=== PATIENT | male | born 1970 | race Caucasian/White ===

== ENCOUNTER 2020-08-27 14:42 | Outpatient (REF) | payer MEDICARE, MEDICAID, SELFPAY ==
[2020-08-29 02:07] LABS: Herpes Simplex Type 1 IgG >58.00 index; Herpes Simplex Type 2 IgG <0.90 index
[2020-08-29 05:05] LABS: HIV AB/AG Nonreactive (Nonreactive); HIV Num 1 0.07 S/CO (0.00-0.99)
== END 2020-08-27 14:43 | disposition home or self-care (01) ==
LOC: HO.LAB 14:42
PROVIDERS: PCP Internal Medicine Medical Oncology; Visit Provider Internal Medicine Medical Oncology
DX: M54.40 Lumbago with sciatica, unspecified side (principal); Z20.6 Contact with and (suspected) exposure to human immunodeficiency virus [HIV]; Z20.828 Contact with and (suspected) exposure to other viral communicable diseases
CPT/HCPCS: 36415; 86695; 86696; 87389

== ENCOUNTER 2020-09-02 15:09 | Outpatient (REF) | payer MEDICARE, MEDICAID, SELFPAY | END 2020-09-02 15:10 | disposition home or self-care (01) | LOC: HO.LAB 15:09 | PROVIDERS: Visit Provider Internal Medicine | DX: Z20.822 Contact with and (suspected) exposure to COVID-19 (principal) | CPT/HCPCS: 36415; C9803; U0003; U0005 ==

== ENCOUNTER 2021-01-14 10:43 | Outpatient (REF) | payer MEDICARE, MEDICAID, SELFPAY | END 2021-01-14 10:44 | disposition home or self-care (01) | LOC: HO.LAB 10:43 | PROVIDERS: PCP Internal Medicine Medical Oncology; Visit Provider Internal Medicine | DX: Z20.822 Contact with and (suspected) exposure to COVID-19 (principal) | CPT/HCPCS: C9803; U0003; U0005 ==

== ENCOUNTER 2021-07-04 07:40 | Outpatient (REF) | payer MEDICARE, MEDICAID, SELFPAY | END 2021-07-04 07:41 | disposition home or self-care (01) | LOC: HO.HOSX 07:40 | PROVIDERS: Visit Provider Physician Assistant | DX: Z13.89 Encounter for screening for other disorder (principal) ==

== ENCOUNTER 2021-07-23 07:45 | Outpatient (REF) | payer MEDICARE, MEDICAID, SELFPAY | END 2021-07-23 07:46 | disposition home or self-care (01) | LOC: HO.HOSX 07:45 | PROVIDERS: Visit Provider Physician Assistant | DX: Z13.89 Encounter for screening for other disorder (principal) ==

== ENCOUNTER 2022-11-09 12:17 | Outpatient (REF) | payer MEDICARE, MEDICAID, SELFPAY | END 2022-11-09 12:18 | disposition home or self-care (01) | LOC: HO.HOSX 12:17 | PROVIDERS: Visit Provider Orthopaedic Surgery | DX: Z13.89 Encounter for screening for other disorder (principal) ==

== ENCOUNTER 2022-11-23 08:35 | Outpatient (REF) | payer MEDICARE, MEDICAID, SELFPAY ==
--- NOTE | ~2022-11-23 | XR_ITS ---
STUDY: Left knee and AP bilateral knees CLINICAL INFORMATION: left knee pain COMPARISON: 04/02/2011 and 12/16/2014 TECHNIQUE: AP view bilateral weightbearing and sunrise view and lateral views of the left. FINDINGS: There is no evidence of fracture or changes of osteoarthritis and no joint effusion XR/XR knee standing BI IMPRESSION: No abnormal findings
--- NOTE | ~2022-11-23 | XR_ITS ---
STUDY: Left knee and AP bilateral knees CLINICAL INFORMATION: left knee pain COMPARISON: 04/02/2011 and 12/16/2014 TECHNIQUE: AP view bilateral weightbearing and sunrise view and lateral views of the left. FINDINGS: There is no evidence of fracture or changes of osteoarthritis and no joint effusion XR/XR knee LT 2V IMPRESSION: No abnormal findings
== END 2022-11-23 08:36 | disposition home or self-care (01) ==
LOC: HO.HOSX 08:35
PROVIDERS: Visit Provider Orthopaedic Surgery
DX: M17.0 Bilateral primary osteoarthritis of knee (principal)
CPT/HCPCS: 20610; 73560; 73565; 99202; J1100

== ENCOUNTER 2023-03-18 10:09 | Outpatient (AMB) | payer MEDICARE, MEDICAID, SELFPAY ==
--- NOTE | 2023-03-18 09:44 | MHC.OFFVIS ---
Intake Intake Visit Reasons: OV - B/L Knee OA - last injected 11/23/22 Intake Note: Rajan is a 52 year old male who presents today for a follow up of bilateral knee OA. Last seen on 11/23/22 where both of his knees were injected. Patient reports that these injections were helpful but not for as long as he would have liked, he would like to repeat today. He is interesting in trying gel injections. Allergies No Known Allergies Allergy (Unverified 11/23/22 14:39) HPI OV - B/L Knee OA - last injected 11/23/22 HPI Details Rajan is a 52 year old man with bilateral knee OA, L>R. He was last seen on 11/23/22 and received an injection to his bilateral knees. He reports good relief from his most recent injections an would like to repeat these today. He would like to discuss repeat steroid vs gel injections today. Review of Systems Const All systems reviewed & are unremarkable except as noted in HPI and below Physical Exam Const General: no acute distress, alert and awake Orientation/consciousness: patient oriented x3 HEENT Head: Yes normocephalic and Yes atraumatic Eyes EOM: EOMs intact bilaterally Resp Effort & Inspection: normal respiratory effort and able to speak in complete sentences Cardio Jugular venous distension: no JVD Skin General skin exam: turgor normal Rashes: no rashes Neuro General: patient oriented x3 Extrem Other: Bilateral Knees: Skin C/D/I No effusion TTP medial compartment Psych Appearance: grossly normal Affect: normal affect Attitude: cooperative Office Procedures Joint Injection/Drain Joint Injection/Drain Details: Injected 1 mL of Decadron and 3 mL 1% lidocaine and 3 mL of 0.25% Marcaine. Site was prepped using aseptic technique. Patient tolerated the procedure well. Primary Site: right knee Secondary Site: left knee Approach Used: anterolateral Coding - Large joint - Glenohumeral/Tronchanteric Bursa/Intraarticular Procedure code (CPT) selection complete Results Reviewed Results Reviewed: 03/18/23 10:18 BUPivacaine MPF 0.25 % [Sensorcaine-MPF 0.25% 10 ML] 10 ml .ROUTE .STK-MED ONE Lidocaine HCl 2 % MPF [Xylocaine 2 % MPF] 5 ml .ROUTE .STK-MED ONE dexAMETHasone sod phosphate [Decadron] 4 mg .ROUTE .STK-MED ONE I personally reviewed relevant radiographs. Moderate bilateral knee OA of the medial & anterior compartments Assessment & Plan Assessment & Plan (1) Osteoarthritis of left knee: Code(s): M17.12 - Unilateral primary osteoarthritis, left knee Plan: This is a 52 year old man with bilateral knee OA, L>R. He has pain primarily with prolonged ambulation, and good relief from his last steroid injection on 11/23/22. He is somewhat limited in his ambulation and has an antalgic gait. I discussed his diagnosis and treatment options. I recommend he remain active as tolerated. I injected his bilateral knees today, which he tolerated well. He can follow up prn. (2) Osteoarthritis of right knee: Code(s): M17.11 - Unilateral primary osteoarthritis, right knee Plan Scribed for Isidoro Arenas MD by Tj Edmond, pediatric medical assistant, on 03/18/23 at 10:30 AM, EST. Coding Level of Care Code Est Pt Level 3 (83012) Diagnoses Osteoarthritis of left knee M17.12 Osteoarthritis of right knee M17.11 CPT Codes Coding - 16156 Large joint: 02760 - Large joint ([id number]) Coding - Joint 7: 88290 - Glenohumeral/Tronchanteric Bursa/Intraarticular ([id number])
== END 2023-03-18 10:39 | disposition home or self-care (01) ==
PROVIDERS: PCP Internal Medicine Medical Oncology; Visit Provider Orthopaedic Surgery
DX: M17.0 Bilateral primary osteoarthritis of knee (principal)
CPT/HCPCS: 20610

== ENCOUNTER → 2023-03-18 10:09 | Outpatient (BNVA) | payer MEDICARE, MEDICAID, SELFPAY | PROVIDERS: PCP Internal Medicine Medical Oncology; Visit Provider Orthopaedic Surgery | DX: M17.0 Bilateral primary osteoarthritis of knee (principal) | CPT/HCPCS: 20610; J1100 ==

== ENCOUNTER 2023-05-31 11:20 | Outpatient (AMB) | payer MEDICARE, MEDICAID, SELFPAY ==
--- NOTE | 2023-05-31 11:22 | MHC.OFFVIS ---
Intake Intake Visit Reasons: Bilateral Knee Euflexxa #1 Intake Note: Rajan is a 52 year old male who presents today for bilateral euflexxa #1 Allergies No Known Allergies Allergy (Unverified 11/23/22 14:39) HPI Bilateral Knee Euflexxa #1 HPI Details Rjaan is a 52 year old man who presents for his first bilateral knee Euflexxa injection. He denies any changes in his symptoms or medical history. He reports feeling tired and having poor sleep habits. He says he does not get much sleep each night. Review of Systems Const All systems reviewed & are unremarkable except as noted in HPI and below Physical Exam Const General: no acute distress, alert and awake Orientation/consciousness: patient oriented x3 HEENT Head: Yes normocephalic and Yes atraumatic Eyes EOM: EOMs intact bilaterally Resp Effort & Inspection: normal respiratory effort and able to speak in complete sentences Cardio Jugular venous distension: no JVD Skin General skin exam: turgor normal Rashes: no rashes Neuro General: patient oriented x3 Extrem Other: skin c/d/i Psych Appearance: grossly normal Affect: normal affect Attitude: cooperative Office Procedures Joint Injection/Drain Joint Injection/Drain Details: Injected 1Euflexxa in each knee. Site was prepped using aseptic technique. Patient tolerated the procedure well. Primary Site: right knee Secondary Site: left knee Approach Used: anterolateral Coding - Large joint - Glenohumeral/Tronchanteric Bursa/Intraarticular Procedure code (CPT) selection complete Results Reviewed Results Reviewed: I personally reviewed relevant radiographs. Moderate bilateral knee OA of the medial & anterior compartments Assessment & Plan Assessment & Plan (1) Osteoarthritis of right knee: Code(s): M17.11 - Unilateral primary osteoarthritis, right knee Plan: Euflexxa 1/3 (2) Osteoarthritis of left knee: Code(s): M17.12 - Unilateral primary osteoarthritis, left knee Plan: Euflexxa 1/3 Plan Scribed for Isidoro Arenas MD by Tj Edmond medical device sales, on 05/31/23 at 11:25 AM, EST. Coding Level of Care Code Est Pt Level 2 (51578) Diagnoses Osteoarthritis of right knee M17.11 Osteoarthritis of left knee M17.12 CPT Codes Coding - Large joint: 23377 - Large joint ([id number]) Coding - Joint 7: 89148 - Glenohumeral/Tronchanteric Bursa/Intraarticular ([id number])
== END 2023-05-31 12:31 | disposition home or self-care (01) ==
PROVIDERS: PCP Internal Medicine Medical Oncology; Visit Provider Orthopaedic Surgery
DX: M17.0 Bilateral primary osteoarthritis of knee (principal)
CPT/HCPCS: 20610

== ENCOUNTER → 2023-05-31 11:20 | Outpatient (BNVA) | payer MEDICARE, MEDICAID, SELFPAY | PROVIDERS: PCP Internal Medicine Medical Oncology; Visit Provider Orthopaedic Surgery | DX: M17.11 Unilateral primary osteoarthritis, right knee (principal); M17.12 Unilateral primary osteoarthritis, left knee | CPT/HCPCS: 20610; J7323 ==

== ENCOUNTER 2023-06-11 10:04 | Outpatient (AMB) | payer MEDICARE, MEDICAID, SELFPAY ==
--- NOTE | 2023-06-11 10:16 | MHC.OFFVIS ---
Intake Intake Visit Reasons: Bilateral Knee Euflexxa #2 Intake Note: Rajan is a 52 year old male who presents today for bilateral knee euflexxa #2 Allergies No Known Allergies Allergy (Unverified 11/23/22 14:39) HPI Bilateral Knee Euflexxa #2 HPI Details Here for Euflexxa injections. Physical Exam Extrem Other: skin c/d/i bilateral knees Office Procedures Joint Injection/Drain Joint Injection/Drain Details: Injected Euflexxa. Site was prepped using aseptic technique. Patient tolerated the procedure well. Primary Site: right knee Secondary Site: left knee Approach Used: anterolateral Coding 99006 - Large joint 76493 - Glenohumeral/Tronchanteric Bursa/Intraarticular Procedure code (CPT) selection complete Assessment & Plan Assessment & Plan (1) Osteoarthritis of right knee: Code(s): M17.11 - Unilateral primary osteoarthritis, right knee Plan: Euflexxa 2/3 (2) Osteoarthritis of left knee: Code(s): M17.12 - Unilateral primary osteoarthritis, left knee Plan: Euflexxa 2/3 Coding Level of Care Code Est Pt Level 2 (12262) Diagnoses Osteoarthritis of right knee M17.11 Osteoarthritis of left knee M17.12 CPT Codes Coding - 91197 Large joint: 47111 - Large joint ([id number]) Coding - Joint 7: 96112 - Glenohumeral/Tronchanteric Bursa/Intraarticular ([id number])
== END 2023-06-11 11:22 | disposition home or self-care (01) ==
PROVIDERS: PCP Internal Medicine Medical Oncology; Visit Provider Orthopaedic Surgery
DX: M17.0 Bilateral primary osteoarthritis of knee (principal)
CPT/HCPCS: 20610

== ENCOUNTER → 2023-06-11 10:04 | Outpatient (BNVA) | payer MEDICARE, MEDICAID, SELFPAY | PROVIDERS: PCP Internal Medicine Medical Oncology; Visit Provider Orthopaedic Surgery | DX: M17.0 Bilateral primary osteoarthritis of knee (principal) | CPT/HCPCS: 20610; J7323 ==

== ENCOUNTER 2023-06-24 10:20 | Outpatient (AMB) | payer MEDICARE, MEDICAID, SELFPAY ==
--- NOTE | 2023-06-24 10:25 | MHC.OFFVIS ---
Intake Intake Visit Reasons: Bilateral Knee Euflexxa #3 Intake Note: Rajan is a 52 year old male who presents today for bilateral knee euflexxa #3. Allergies No Known Allergies Allergy (Unverified 06/24/23 10:26) Medication List - Last Reconciled 06/24/23 by Viv Nguyễn, RN docusate sodium 100 mg PO DAILY PRN lisinopril-hydrochlorothiazide 10-12.5 mg 1 tab PO DAILY omeprazole 20 mg PO QAM pregabalin 200 mg PO BID zolpidem 10 mg PO BEDTIME PRN HPI Bilateral Knee Euflexxa #3 HPI Details Rajan is a 52 year old man who presents for his final bilateral knee Euflexxa injection. He denies any changes in his symptoms or medical history. Review of Systems Const All systems reviewed & are unremarkable except as noted in HPI and below Physical Exam Const General: no acute distress, alert and awake Orientation/consciousness: patient oriented x3 HEENT Head: Yes normocephalic and Yes atraumatic Eyes EOM: EOMs intact bilaterally Resp Effort & Inspection: normal respiratory effort and able to speak in complete sentences Cardio Jugular venous distension: no JVD Skin General skin exam: turgor normal Rashes: no rashes Neuro General: patient oriented x3 Extrem Other: skin c/d/i Psych Appearance: grossly normal Affect: normal affect Attitude: cooperative Office Procedures Joint Injection/Drain Joint Injection/Drain Details: Injected Euflexxa. Site was prepped using aseptic technique. Patient tolerated the procedure well. Primary Site: right knee Secondary Site: left knee Coding - Large joint - Glenohumeral/Tronchanteric Bursa/Intraarticular Procedure code (CPT) selection complete Assessment & Plan Assessment & Plan (1) Osteoarthritis of right knee: Code(s): M17.11 - Unilateral primary osteoarthritis, right knee Plan: Euflexxa 3/3 (2) Osteoarthritis of left knee: Code(s): M17.12 - Unilateral primary osteoarthritis, left knee Plan: Euflexxa 3/3 Plan Scribed for Isidoro Arenas MD by Tj Edmond, medical assembly, on 06/24/23 at 10:40 AM, EST. Coding Level of Care Code Est Pt Level 2 (08439) Diagnoses Osteoarthritis of right knee M17.11 Osteoarthritis of left knee M17.12 CPT Codes Coding - Large joint: 96075 - Large joint ([id number]) Coding - Joint 7: 65489 - Glenohumeral/Tronchanteric Bursa/Intraarticular ([id number])
== END 2023-06-24 11:00 | disposition home or self-care (01) ==
PROVIDERS: PCP Internal Medicine Medical Oncology; Visit Provider Orthopaedic Surgery
DX: M17.0 Bilateral primary osteoarthritis of knee (principal)
CPT/HCPCS: 20610

== ENCOUNTER → 2023-06-24 10:20 | Outpatient (BNVA) | payer MEDICARE, MEDICAID, SELFPAY | PROVIDERS: PCP Internal Medicine Medical Oncology; Visit Provider Orthopaedic Surgery | DX: M17.0 Bilateral primary osteoarthritis of knee (principal) | CPT/HCPCS: 20610; J7323 ==

== ENCOUNTER 2024-10-26 13:15 | Outpatient (AMB) | payer MEDICARE, MEDICAID, SELFPAY ==
--- NOTE | 2024-10-26 13:17 | A.OFFVIS_ITS ---
Intake Visit Reasons: OV- B/L Knee OA - Last Euflexxa 06/24/23 Intake Note: Rajan is a 54 year old male who presents today for a follow up of his bilateral knee OA about 3 months s/p Bilateral Euflexxa Series. Patient reports the the euflexxa series was helpful. He reports that he went to stand up about a week ago and felt a burning pain on the lateral aspect of the right knee and has felt this sensation on and off since then. Allergies No Known Allergies Allergy (Unverified 06/24/23 10:26) HPI HPI OV- B/L Knee OA - Last Euflexxa 06/24/23: Details: Rajan is a 54 year old male who presents today for a follow up of his bilateral knee OA about 3 months s/p Bilateral Euflexxa Series. Patient reports the the euflexxa series was helpful. He reports that he went to stand up about a week ago and felt a burning pain on the lateral aspect of the right knee and has felt this sensation on and off since then. FORMERLY [facility], [facility] Surgical History (Updated 09/18/24 @ 14:02 by RADHA Cavanaugh) History of lumbar fusion S/P IVC filter Physical Exam Const General: no acute distress, alert and awake Orientation/consciousness: patient oriented x3 HEENT Head: Yes normocephalic and Yes atraumatic Eyes EOM: EOMs intact bilaterally Resp Effort & Inspection: normal respiratory effort and able to speak in complete sentences Cardio Jugular venous distension: no JVD Skin General skin exam: turgor normal Rashes: no rashes Neuro General: patient oriented x3 Extrem Other: skin c/d/i No pain with palpation. Normal gait. Full range motion. Psych Appearance: grossly normal Affect: normal affect Attitude: cooperative Assessment & Plan Assessment & Plan (1) Bilateral primary osteoarthritis of knee: Code(s): M17.0 - Bilateral primary osteoarthritis of knee Category: Medical Plan: Viscosupplementation was helpful. Continue activity as tolerated. No intervention warranted at this time. Coding Level of Care Code Est Pt Level 3 (81664) Diagnoses Bilateral primary osteoarthritis of knee M17.0
--- OUTSIDE RECORDS SUMMARY | 2024-10-26 14:21 | XMS_ITS ---
Author Organization Malcom Elias III, MD Address [address] [place] [address] [place] [address] Care Team Providers Care Ambulance Operations Supervisor Name Role Phone Malcom Elias Primary Care Provider [phone] Allergies Allergen (clinical drug ingredient) Drug/Non Drug Allergy documented on EMR Reaction Allergy Type Onset Date Status No Known Drug Allergy Unknown Drug Allergy Active REASON FOR VISIT Follow up Medications Medication SIG (Take, Route, Frequency, Duration) Notes Start Date End Date Status Lidocaine & Adhesive Sheets 5 % (Patch) as directed Externally daily 04/13/2024 Active Lisinopril-hydroCHLORO thiazide 10-12.5 MG 1 tablet Orally Once a day 10/26/2022 Active Betamethasone Dipropionate 0.05 % 1 application Externally Once a day 03/03/2024 Active Wegovy 0.25 MG/0.5ML 0.5 mL Subcutaneous 0.25mg once a week for 4 weeks DX: E66.01 Morbid obesity 06/27/2024 Active Social History Tobacco Use: Social History Observation Description Date Details (start date - stop date) Never Smoker NA - NA Sex Assigned At : Social History Observation Description Sex Assigned At Male Tobacco Use/Smoking Question Answer Notes Patient is a nonsmoker Additional Findings: Tobacco Non-User Aggressive non-smoker Encounters Encounter Location Date Provider Diagnosis Malcom Elias III, MD [address] [place] [address] [place] [address] 08/14/2024 Malcom Elias Essential hypertensi on I10 Assessments Encounter Date Diagnosis (ICD Code) Assessment Notes Treat ment Notes Treatment Clinical Notes 08/14/2024 Essential hypertension (ICD-10 - I10) His blood pressure is coming under control. We have discussed aggressive weight loss measures. He is being referred to the bariatric surgery program at [facility]. Current medications were continued. Plan Of Treatment Medication Medication Name Sig Start Date Stop Date Notes Lidocaine & Adhesive Sheets 5 % (Patch) as directed Externally daily 04/13/2024 Lisinopril-hydroCHLOROth iazide 10-12.5 MG 1 tablet Orally Once a day 10/26/2022 Betamethasone Dipropionate 0.05 % 1 application Externally Once a day 03/03/2024 Wegovy 0.25 MG/0.5ML 0.5 mL Subcutaneous 0.25mg once a week for 4 weeks 06/27/2024 DX: E66.01 Morbid obesity Next Appt Details Provider Name:Malcom Elias, 10/30/2024 02:45:00 PM, [address] [place] [address] NABOR DAIGLE, ÁNGEL RIVAS, [phone], Provider Name:Malcom Elias, 03/05/2025 02:30:00 PM, [address] [place] [address] NABOR DAIGLE, ÁNGEL RIVAS, [phone], Progress Notes * MARLENY FALKDOB:1970 (54 yo M)Acc No.[id number]:08/14/2024 Progress Notes Patient:?MARLENY FALK Provider:?Malcom Elias MD :1970???Age:54 Y???Sex:Male Jonathan e:08/14/2024 Address:[address] [place] [id number] Subjective: * Chief Complaints: * ???1. Follow up. * HPI: ???COVID-19 Screening:?Questions?Have you had any new onset fever, chills, cough, congestion, sore throat, shortness of breath, muscle aches??No * ROS:?General/Constitutional:?pain?only normal aches and pains.?Chills?denies.?Fatigue?admits.?Fever?denies.?ENT:?Decreased hearing?denies.?Respiratory:?Cough?denies.?Cardiovascular:?Chest pain with exertion?denies.?Dyspnea on exertion?denies.?Shortness of breath?denies.?Gastrointestinal:?Constipation?denies.?Decreased appetite?denies.?Diarrhea?denies.?Heartburn?denies.?Nausea?denies.?Rectal bleeding?denies.?Vomiting?denies.?Hematology:?bruising?denies.?petechiae?denies.?Swollen glands?none have been noted.?Genitourinary:?Frequent urination?denies.?Musculoskeletal:?Muscle aches?denies.?Painful joints?denies.?Sciatica?denies.?Weakness?denies.?Skin:?Itching?denies.?Rash?denies.?Skin lesion(s)?denies.?Neurologic:?Difficulty speaking?denies.?Dizziness?denies.?Headache?denies.?Low back pain?denies.?Psychiatric:?Depressed mood?denies.? * Medical History:?Lumbar disc disease, Essential hypertension, Insomnia, chronic pain. Lumbar spine, Morbid obesity, history of DVT left leg summer 2015, history of pulmonary embolism. 2015, filter in place. Vena cava, Skin lesion, right pinna, neck pain, February 2018, {'Pulmonary Embolism': 'Past medical history'}. * Surgical History:?lumbar fus ion, Dr. Huerta 2014, filter in vena cava, DVT left leg with pulmonary embolism 11/2015, tooth extraction 09/2018, No history . * Hospitalization/Major Diagno stic Procedure:?No history . * Family History:?Father: kee kennedy, diagnosed with CVD, DM, HTN.?Mother: 60 yrs.?3 son(s) , 2 daughter(s) - healthy. .? There is no family history of malignancy or of thrombophilia or blood clotting disorders. * Social History:?Tobacco Use:?Tobacco Use/Smoking?Patient is a?nonsmoker ?Additional Findings: Tobacco Non-User?Aggressive non-smoker * Medications:?Taking Lidocain e & Adhesive Sheets 5 % (Patch) Kit as directed Externally daily , Taking Lisinopril-hydroCHLOROthiazide 10-12.5 MG Tablet 1 tablet Orally Once a day , Taking Betamethasone Dipropionate 0.05 % Cream 1 application Externally Once a day , Taking Wegovy 0.25 MG/0.5ML Solution Auto-injector 0.5 mL Subcutaneous 0.25mg once a week for 4 weeks , stop date 08/26/2024, Notes to Pharmacist: DX: E66.01 Morbid obesity, Medication List reviewed and reconciled with the patient * Allergies:?No Known Drug All ergy. Objective: * Vitals:? * Examination: ???General Examination: ?GENERAL APPEARANCE:?pleasant, well nourished, well developed, in no acute distress, calm and relaxed.?HEAD:?atraumatic, normocephalic.?EYES:?eomi, perrla, anicteric, conjugate.?EARS:?normal.?NOSE:?septum intact.?ORAL CAVITY:?normal, unremarkable.?NECK/THYROID:?no jugular venous distention, no carotid bruit, thyroid normal.?LYMPH NODES:?no enlarged lymph nodes,spleen normal.?SKIN:?no suspicious lesions, anicteric.?HEART:?no clicks, gallops, murmurs, or rubs, regular rhythm, S1, S2 normal, no s3, or vascular bruits.?LUNGS:?clear to auscultation .?BREASTS:??no masses palpable bilaterally.?ABDOMEN:?bowel sounds normal, no ascites, no organomegaly, no mass.?RECTAL EXAM:?not examined.?MUSCULOSKELETAL:?extremities unremarkable, no clubbing, cyanosis or edema.?PERIPHERAL PULSES:?normal.?NEUROLOGIC:?alert and oriented, cranial nerves 2-12 grossly intact, deep tendon reflexes 2+ symmetrical, motor strength normal upper and lower extremities, sensory exam intact.?PSYCH:?alert, oriented.? Assessment: * Assessment: 1.?Essential hypertension - I10???Notes :His blood pressure is coming under control. We have discussed aggressive weight loss measures. He is being referred to the bariatric surgery program at [facility]. Current medications were continued.??? Plan: * Treatment: 2.?Others? Continue Wegovy Solution Auto-injector, 0.25 MG/0.5ML, 0.5 mL, Subcutaneous, 0.25mg once a week for 4 weeks, Notes to Pharmacist: DX: E66.01 Morbid obesity;?Continue Lidocaine & Adhesive Sheets Kit, 5 % (Patch), as directed, Externally, daily.?? * Images: * The named appointment provid er may or may not be the originator of this progress note, and it is not deemed complete until electronically signed by the appointment provider. Sign off status: Pending * Provider:?Malcom Elias MD Date:?07/23 Generated for Zabrina nick/Mateusz/eTgardeniasmitting on:?10/26/2024 02:20 PM EDT History and Physical Notes * HPI (History of Present Illness) Category Sub-Category Detail Notes COVID-19 Screening Questions Have you had any new onset fever, chills, cough, congestion, sore throat, shortness of breath, muscle aches?: No Examination Category Sub-Category Detail Notes General Examination GENERAL APPEARANCE: pleasant , well nourished, well developed, in no acute distress, calm and relaxed HEAD: atraumatic, normocep halic EYES: eomi, perrla, anicte ga, conjugate EARS: normal NOSE: septum intact NECK/THYROID: no jugular venous di stention, no carotid bruit, thyroid normal HEART: no clicks, gallops, murmurs, or rubs, regular rhythm, S1, S2 normal, no s3, or vascular bruits LUNGS: clear to auscultatio n ABDOMEN: bowel sounds normal, no ascites, no organomegaly, no mass NEUROLOGIC: alert and oriented, cranial nerves 2-12 grossly intact, deep tendon reflexes 2+ symmetrical, motor strength normal upper and lower extremities, sensory exam intact SKIN: no suspicious lesion s, anicteric PERIPHERAL PULSES: normal BREASTS: no masses palpable b ilaterally MUSCULOSKELETAL: extremities unremark able, no clubbing, cyanosis or edema LYMPH NODES: no enlarged lymph no ceferino,spleen normal RECTAL EXAM: not examined PSYCH: alert, oriented ORAL CAVITY: normal, unremarkable
--- OUTSIDE RECORDS SUMMARY | 2024-10-26 14:21 | XMS_ITS | Clinical Summary ---
Author Organization [employer] Address [address] [facility] [address] [place] [address] Care Team Providers Care Director Of Media Name Role Phone Unavailable Primary Care Provider Unavailabl e Encounters Date Type Department Care Team Description 10/03/2024 Telephone [facility] [address] [place] [address] Ghada Tatum no show and cancelled/wait list from Last 3 Months Social History Tobacco Use Types Packs/Day Years Used Date Smoking Tobacco: Never Assessed Sex and Gender Information Value Date Recorded Sex Assigned at Male 12/22/2023 10:02 AM EDT Legal Sex Male 10:45 AM EST Gender Identity Male 12/22/2023 10:02 AM EDT Sexual Orientation Straight 05/01/2024 2: 36 PM EST Plan of Treatment Health Maintenance Due Date Last Done Comments CT Colonography 1971 Colonoscopy 1971 Colorectal Cancer Screening 1971 Dental Oral Exam 1971 Dental Prophylaxis 1971 Dental X-Ray: Bitewings 1971 Dental X-Ray: Full Mouth 1971 Depression Screening 1971 FIT DNA/Cologuard 1971 FIT 1971 FOBT 1971 HIV Screening 1971 Lipid Panel 1971 SDOH Screening 1971 Sigmoidoscopy 1971 Alcohol/Substance Use Screening 1983 Tobacco Screening 1983 Hepatitis C Screening 1989 DTaP/Tdap/Td Vaccines (1 - Tdap) 1990 Hepatitis B Vaccines (1 of 3 - 19+ 3-dose series) 1990 Pneumococcal Vaccine: 50+ Ye ars (1 of 1 - PCV) 2021 Zoster Vaccines (1 of 2) 2021 COVID-19 Vaccine ( - 2023-2 5 season) 2024 Influenza Vaccine (#1) 2024 RSV Patients and Pa tients Aged 60 years or older (1 - 1-dose 75+ series) 2046 HIB Vaccines Aged Out No longer eligi ble based on patient's age to complete this topic HPV Vaccines Aged Out No longer eligi ble based on patient's age to complete this topic Hepatitis A Vaccines Aged Out No long er eligible based on patient's age to complete this topic IPV Vaccines Aged Out No longer eligi ble based on patient's age to complete this topic Meningococcal Vaccine Aged Out No eva oksana eligible based on patient's age to complete this topic RSV under 20 months Aged Out No longe r eligible based on patient's age to complete this topic Rotavirus Vaccines Aged Out No longer eligible based on patient's age to complete this topic Insurance [facility] MEDICAID STAND ADULT
--- OUTSIDE RECORDS SUMMARY | 2024-10-26 14:21 | XMS_ITS ---
Author Organization Malcom Elias III, MD Address [address] [place] [address] [place] [address] Care Team Providers Care Photo Journalist Name Role Phone Malcom Elias Primary Care Provider [phone] Allergies Allergen (clinical drug ingredient) Drug/Non Drug Allergy documented on EMR Reaction Allergy Type Onset Date Status No Known Drug Allergy Unknown Drug Allergy Active REASON FOR VISIT Follow up Medications Medication SIG (Take, Route, Frequency, Duration) Notes Start Date End Date Status Betamethasone Dipropionate 0.05 % 1 application Externally Once a day 03/03/2024 Active Lidocaine & Adhesive Sheets 5 % (Patch) as directed Externally daily 04/13/2024 Active Lisinopril-hydroCHLORO thiazide 10-12.5 MG 1 tablet Orally Once a day 10/26/2022 Active Wegovy 0.25 MG/0.5ML 0.5 mL Subcutaneous [...] Date Provider Diagnosis Malcom Elias III, MD [address] [place] [address] [place] [phone] 08/30/2024 Malcom Elias Essential hypertensi on I10 Assessments Encounter Date Diagnosis (ICD Code) Assessment Notes Treat ment Notes Treatment Clinical Notes 08/30/2024 Essential hypertension (ICD-10 - I10) His blood pressure is coming under control. We have discussed aggressive weight loss measures. He is being referred to the bariatric surgery program at [facility]. Current medications were continued. Plan Of Treatment Medication Medication Name Sig Start Date Stop Date Notes Betamethasone Dipropionate 0.05 % 1 application Externally Once a day 03/03/2024 Lidocaine & Adhesive Sheets 5 % (Patch) as directed Externally daily 04/13/2024 Lisinopril-hydroCHLOROth iazide 10-12.5 MG 1 tablet Orally Once a day 10/26/2022 Wegovy 0.25 MG/0.5ML 0.5 mL Subcutaneous 0.25mg once a week for 4 weeks 06/27/2024 DX: E66.01 Morbid obesity Next Appt Details Provider Name:Malcom Elias, 10/30/2024 02:45:00 PM, [address] [place] [address] N[address] DAIGLE, ÁNGEL RIVAS, [phone], Provider Name:Malcom Elias, 03/05/2025 02:30:00 PM, [address] [place] [address] NABOR DAIGLE, ÁNGEL RIVAS, [phone], Progress Notes * MARLENY FALKDOB:1970 (54 yo M)Acc No.[id number]:08/30/2024 Progress Notes Patient:?MARLENY FALK Provider:?Malcom Elias MD :1970???Age:54 Y???Sex:Male Jonathan e:08/30/2024 Address:[address] [place] [id number] Subjective: * Chief Complaints: * ???1. Follow [...] ?Additional Findings: Tobacco Non-User?Aggressive non-smoker * Medications:?Taking Wegovy 0 .25 MG/0.5ML Solution Auto-injector 0.5 mL Subcutaneous 0.25mg once a week for 4 weeks , Notes to Pharmacist: DX: E66.01 Morbid obesity, Taking Lidocaine & Adhesive Sheets 5 % (Patch) Kit as directed Externally daily , Taking Lisinopril-hydroCHLOROthiazide 10-12.5 MG Tablet 1 tablet Orally Once a day , Taking Betamethasone Dipropionate 0.05 % Cream 1 application Externally Once a day , Medication List reviewed and reconciled with the [...] referred to the bariatric surgery program at [facility]. Current medications were continued.??? Plan: * [...] off status: Pending * Provider:?Malcom Elias MD Date:?08/19 Generated for Zabrina nick/Mateusz/eTgardeniasmitting on:?10/26/2024 02:20 PM [...]
--- OUTSIDE RECORDS SUMMARY | 2024-10-26 14:21 | XMS_ITS | Patient Health Record ---
Author Organization Malcom Elias III, MD Address [address] [place] [address] Care Team Providers Care Cd Technician Name Role Phone Malcom Elias Primary Care Provider Allergies Allergen (clinical drug ingredient) Drug/Non Drug Allergy documented on EMR Reaction Allergy Type Onset Date Status No Known Drug Allergy Unknown Drug Allergy Active Results Component Value Reference Range Notes URINE DIP STICK (Not yet rev iewed by provider) Interpretation: Performing Lab: Notes/Report: SG 1.010 1.005 - 1.025 pH 6.5 5.0 - 9.0 SARI Negative Negative - NIT Negative Negative - PRO 15 Negative - Trace GLU Negative Negative - KET Negative Negative - UBG 0.2 0.1 - 1.8 MELISSA Negative 0.2 - 1.3 BLD 5-10 Negative - Reason For Referral Reason Consult and Treat Diagnosis 1 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) Referral Organization Malcom Elias III, MD Referring Provider First Name Malcom Referring Provider Last Name Curt Referring Provider Speciality Internal M edicine Referred Provider Roxann Dermatolog y Referred Provider Specialty Dermatology General Notes Rossy Rodriguez 2023 03:30:36 PM EDT > Patient was advised from [facility] he has to contact their office first before the referral can be sent over and patient can be seen.Jennifer Amber 03/14/2024 03:09:26 PM > patient would like to referred to a different leather goods assembler, [facility] Amber 03/30/2024 03:39:42 PM >Office does not have the referral was advised by the office to have the patient contact their office as they do not need a referral to be sent. Patient was notified and left a message to contact their office but referral was resent.Sy Amber 10/09/2024 01:52:41 PM > patient was seen in office today and stated he does not want to be seen any longer for this issue. Referral will be closed. Referral Priority Routine Reason Consult and Treat Screening of Colon Cancer Diagnosis 1 Encounter for screen ing colonoscopy (Z12.11) Referral Organization Malcom Elias III, MD Referring Provider First Name Malcom Referring Provider Last Name Curt Referring Provider Speciality Internal edicine Referred Organization [facility] nter Referred Provider [facility] er, Gastroenterology Referred Address [address] [place] [address],[place], [id number], Referred Provider Specialty Gastroentero logy General Notes Rossy Rodriguez 2023 03:30:19 PM EDT > Referral faxed with Progress note, Rossy Rodriguez 03/30/2024 02:08:09 PM > Patient was contacted by [facility] gastro on 03/07 as well as they sent out a letter to the patients home to notify the patient to contact their office to schedule an appointment. Patient was also contacted by Dr. Peña office as well 03/30/24Sy Amber 09/25/2024 02:25:32 PM > Patient was scheduled for 09/19/24 @ 1pm patient no showed to the appointment. Referral Priority Routine Referral Appointment Date 09/19/2024 Reason Evaluate and Treat Evaluate for need of sleep study Diagnosis 1 Daytime somnolence ( R40.0) Diagnosis 2 Snoring (R06.83) Referral Organization Malcom Elias III, MD Referring Provider First Name Malcom Referring Provider Last Name Curt Referring Provider Speciality Internal edicine Referred Provider MARLENY QUESADA Referred Provider Specialty Pulmonary Di seases General Notes Rossy Dan 05/15/2024 10:26:12 AM > Referral Faxed with progress note.Sy Amber 10/11/2024 02:14:29 PM > Patient stated his father just had a heart attack and will reach out to Pulmonary when he can. Dr Elias made aware Referral Priority Routine Reason Consult and Treat Left Shoulder Pain Right Knee Pain Questioning Meniscal Tear of Right Knee Diagnosis 1 Left shoulder pain ( M25.512) Diagnosis 2 Right knee pain, uns pecified chronicity (M25.561) Referral Organization Malcom Elias III, MD Referring Provider First Name Malcom Referring Provider Last Name Curt Referring Provider Speciality Internal M edicine Referred Provider TRACEY PEREZ Referred Provider Specialty Orthopedic S urgery General Notes Rossy Dan 10/11/2024 02:13:59 PM > Referral was faxed with progress note and patient made aware Referral Priority Routine Medications Medication SIG (Take, Route, Frequency, Duration) Notes Start Date End Date Status Lisinopril-hydroCHLORO thiazide 10-12.5 MG 1 tablet Orally Once a day 10/26/2022 Active Betamethasone Dipropionate 0.05 % 1 application Externally Once a day 03/03/2024 Active Wegovy 0.25 MG/0.5ML 0.5 mL Subcutaneous 0.25mg once a week for 4 weeks DX: E66.01 Morbid obesity 06/27/2024 Active Lidocaine & Adhesive Sheets 5 % (Patch) as directed Externally daily 04/13/2024 Active Immunizations Vaccine Route Administration Date Status Comme nts PPD (Planted) ID Intradermal 12/06/2019 Administered MMR Unknown 01/03/2020 Others MMR IGG Possit judson 12/29/2019 Varicella Unknown 01/03/2020 Others Varicella IGG Possitive 01/01/2020 Td (adult) Unknown 03/04/2020 Others 2019-12-29 Tet anus IGG Possitive Social History Tobacco Use: Social History Observation Description Date Details (start date - stop date) Never Smoker NA - NA Sex Assigned At : Social History Observation Description Sex Assigned At Male Tobacco Use/Smoking Question Answer Notes Patient is a nonsmoker Additional Findings: Tobacco Non-User Aggressive non-smoker Alcohol Screen Question Answer Notes Did you have a drink containing alcohol in the p ast year? No Points 0 Interpretation Negative Problems Problem Type SNOMED Code ICD Code Onset Dates Problem Status W/U Status Risk Notes Problem 0689229 Primary insomnia (F51.01) Active confirmed He continues to have difficulty finding a comfortable position to sleep. I have suggested various types of pillows for him and he will try them. Problem 08765246862260576 Pain in left shoulder (M25.512) Active confirmed He has been referred to orthopedics with a possible tear in his rotator cuff. Problem 148624615 Erectile dysfunction, unspecified erectile dysfunction type (N52.9) Active confirmed This problem curtis s been resolved with the use of oral medication. No change in his regimen was needed today. Problem 50837582 Essential hypertension (I10) Active confirmed His blood pressure is 137/81. No change in his regimen is needed today. Problem 436524603 History of pulmonary embolism (Z86.711) Active confirmed There was no shortness of breath or calf tenderness today. He'll be monitored for recurrence. There is no sign today of recurrent venous thromboembolism. Problem 056934472 Morbid obesity (E66.01) Active confirmed He is involved with the weight-loss program at [facility]. His weight is stable. He remains in the morbidly obese range. He is no longer taking Wegovy due to insurance non-coverage. Problem 801910220 Back pain of lumbar region with sciatica (M54.40) Active confirmed His neck pain has been mild lately and a has no arm weakness. His back pain is moderate, but he is able to walk without a limp and is only intermittent. He has had no falls. He declines to see neurosurgery anymore. Problem 933364169 Osteoarthritis of cervical spine, unspecified spinal osteoarthritis complication status (M47.812) Active confirmed He has consistently refused to have neurosurgery on his neck. 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 He remains ambulatory and is hyperreflexive in his lower extremities. Again, today we broached this issue and he refuses to consider any surgical referral or to have any surgical procedure. Problem Daytime somnolence (212603746722) Daytime somnolence (R40.0) Active confirmed His sleep study has been rescheduled. Problem 37111110 Reactive depression (F32.9) Active confirmed Once again he i s noncompliant with recommendations for surgical relief of the cervical spinal cord. He is mentally competent to make decisions today. He is being and he is depressed but he is seeing a therapist regularly. He says he is taking his antidepressant medication. I have reviewed with him the consequences of not having surgery. Problem 3689276200110 Vasculogenic erectile dysfunction, unspecified vasculogenic erectile dysfunction type (N52.9) Active confirmed He has the 2 prescriptions that his structure if he wishes to obtain the medication. I will send him to urologist if he wishes. I recommended he attempt intercourse after a good night sleep early in the morning on the weekend. Problem 139545614 History of deep venous thrombosis (DVT) of distal vein of left lower extremity (Z86.718) Active confirmed He had a pulmonary embolism in 2015 when he was under the care of Dr. Bravo. He continues to have edema in his left leg below the knee which is chronic. There was no sign of acute thrombosis today. Problem 030844350 Right anterior knee pain (M25.561) Active confirmed He has been referred to orthopedics with a possible tear in his meniscus. Problem 70237130 Encephalomalaci a (G93.89) Active confirmed He continues to have lower extremity hyperreflexia and pain in his neck with range of motion. He refuses to consider a surgical approach. I have refilled his pregabalin. Vital Signs Heart Rate 78 /min 10/09/2024 Temperature 97.2 degrees Fahrenheit 10/09/2024 Blood pressure diastolic 81 mm Hg 10/09/2024 Height 71 in 10/09/2024 Blood pressure systolic 137 mm Hg 10/09/2024 Weight 307 lbs 10/09/2024 BMI 42.81 kg/m2 10/09/2024 Encounters Encounter Location Date Provider Diagnosis Malcom Elias III, MD [address] [place] [address] [place] [phone] 01/24/2024 Malcom Elias Essential hypertensi on I10 ; Obesity (BMI 30-39.9) E66.9 ; Erectile dysfunction, unspecified erectile dysfunction type N52.9 ; Primary insomnia F51.01 ; History of pulmonary embolism Z86.711 and History of deep venous thrombosis (DVT) of distal vein of left lower extremity Z86.718 Malcom Elias III, MD [address] [place] [address] [place] [phone] 03/03/2024 Malcom Elias Essential hypertensi on I10 ; Obesity (BMI 30-39.9) E66.9 ; Erectile dysfunction, unspecified erectile dysfunction type N52.9 ; Primary insomnia F51.01 ; History of pulmonary embolism Z86.711 ; History of deep venous thrombosis (DVT) of distal vein of left lower extremity Z86.718 and Reactive depression F32.9 Malcom Elias III, MD [address] [place] [address] [place] [phone] 05/11/2024 Malcom Elias Essential hypertensi on I10 ; Morbid obesity due to excess calories E66.01 ; Osteoarthritis of cervical spine, unspecified spinal osteoarthritis complication status M47.812 ; History of deep venous thrombosis (DVT) of distal vein of left lower extremity Z86.718 and Back pain of lumbar region with sciatica M54.40 Malcom Elias III, MD [address] [place] [address] [place] [id number] 10/09/2024 Malcom Elias Pain in left shoulde r M25.512 ; Right anterior knee pain M25.561 ; Essential hypertension I10 ; Erectile dysfunction, unspecified erectile dysfunction type N52.9 ; Morbid obesity E66.01 ; Primary insomnia F51.01 ; Back pain of lumbar region with sciatica M54.40 ; History of pulmonary embolism Z86.711 ; History of deep venous thrombosis (DVT) of distal vein of left lower extremity Z86.718 ; Osteoarthritis of cervical spine, unspecified spinal osteoarthritis complication status M47.812 ; Encephalomalacia G93.89 ; Reactive depression F32.9 and Daytime somnolence R40.0 Malcom Elias III, MD [address] [place] [address] [place] [id number] 01/25/2024 Malcom Elias III, MD [address] [place] [address] [place] [id number] 03/13/2024 Malcom Elias III, MD [address] [place] [address] [place] [id number] 03/15/2024 Malcom Elias III, MD [address] [place] [address] [place] [id number] 03/16/2024 Malcom Elias III, MD [address] [place] [address] [place] [id number] 03/29/2024 Malcom Elias III, MD [address] [place] [address] [place] [id number] 04/05/2024 Malcom Elias III, MD [address] [place] [address] [place] [id number] 04/13/2024 Malcom Elias III, MD [address] [place] [address] [place] [id number] 04/20/2024 Malcom Elias III, MD [address] [place] [address] [address] [place] [phone] 06/27/2024 Malcom Elias Essential hypertensi on I10 Malcom Elias III, MD [address] [place] [address] [address] [place] [phone] 07/14/2024 Malcom Elias III, MD [address] [place] [address] [address] [place] [address] 04/13/2024 Malcom Elias Assessments Encounter Date Diagnosis (ICD Code) Assessment Notes T reatment Notes Treatment Clinical Notes 01/24/2024 Obesity (BMI 30-39.9 ) (ICD-10 - E66.9) He has begun to lose weight. He remains morbidly obese. We reviewed his weight loss strategy diet and nutrition in detail today. 01/24/2024 Essential hypertensi on (ICD-10 - I10) We will continue to use lifestyle modification weight loss and sodium restriction to reduce her blood pressure further. The diastolic is 89. He was given an appointment to return too the office in the near future to monitor this closely. I offered to give him medication in the meantime but he declined. 03/03/2024 Obesity (BMI 30-39.9 ) (ICD-10 - E66.9) He weighs 303 pounds and his body mass index is 40. We discussed diet and nutrition. We discussed weight loss strategy. He requested a prescription for an injectable weekly weight loss medication. He meets criteria for this. I have prescribed tirazepatide. 03/03/2024 Essential hypertensi on (ICD-10 - I10) We will continue to use lifestyle modification weight loss and sodium restriction to reduce the blood pressure further. The diastolic is 80. He was given an appointment to return too the office in the near future to monitor this closely. 05/11/2024 Essential hypertensi on (ICD-10 - I10) His blood pressure is coming under control. We have discussed aggressive weight loss measures. He is being referred to the bariatric surgery program at [facility]. Current medications were continued. 05/11/2024 Morbid obesity due t o excess calories (ICD-10 - E66.01) His body mass index is 42.5 and his weight is 305. For for a sleep study to rule out C sleep apnea. He has been referred to the weight loss program of [facility] to discuss bariatric procedures. His insurance does not cover weight loss medication. 10/09/2024 Pain in left shoulde r (ICD-10 - M25.512) He has been referred to orthopedics with a possible tear in his rotator cuff. 10/09/2024 Right anterior knee pain (ICD-10 - M25.561) He has been referred to orthopedics with a possible tear in his meniscus. 06/27/2024 Essential hypertensi on (ICD-10 - I10) His blood pressure is coming under control. We have discussed aggressive weight loss measures. He is being referred to the bariatric surgery program at [facility]. Current medications were continued. 01/24/2024 Erectile dysfunction , unspecified erectile dysfunction type (ICD-10 - N52.9) This problem has been successfully addressed with medication. 03/03/2024 Erectile dysfunction , unspecified erectile dysfunction type (ICD-10 - N52.9) This problem has resolved with use of prescribed medication. 05/11/2024 Osteoarthritis of cervical spine, unspecified spinal osteoarthritis complication status (ICD-10 - M47.812) He has consistently refused to have neurosurgery on his neck. 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 He remains ambulatory and is hyperreflexive in his lower extremities. Again, today we broached this issue and he refuses to consider any surgical referral or to have any surgical procedure. 10/09/2024 Essential hypertensi on (ICD-10 - I10) His blood pressure is 137/81. No change in his regimen is needed today. 01/24/2024 Primary insomnia (ICD-10 - F51.01) He continues to have difficulty finding a comfortable position to sleep. I have suggested various types of pillows for him and he will try them. 03/03/2024 Primary insomnia (ICD-10 - F51.01) He continues to have difficulty finding a comfortable position to sleep. I have suggested various types of pillows for him and he will try them. 05/11/2024 History of deep veno us thrombosis (DVT) of distal vein of left lower extremity (ICD-10 - Z86.718) He had a pulmonary embolism in 2015 when he was under the care of Dr. Bravo. He continues to have edema in his left leg below the knee which is chronic. There was no sign of acute thrombosis today. 10/09/2024 Erectile dysfunction , unspecified erectile dysfunction type (ICD-10 - N52.9) This problem has been resolved with the use of oral medication. No change in his regimen was needed today. 01/24/2024 History of pulmonary embolism (ICD-10 - Z86.711) There was no shortness of breath or calf tenderness today. He'll be monitored for recurrence. There is no sign today of recurrent venous thromboembolism. 03/03/2024 History of pulmonary embolism (ICD-10 - Z86.711) There was no shortness of breath or calf tenderness today. He'll be monitored for recurrence. There is no sign today of recurrent venous thromboembolism. 05/11/2024 Back pain of lumbar region with sciatica (ICD-10 - M54.40) His neck pain has been mild lately and a has no arm weakness. His back pain is moderate, but he is able to walk without a limp and is only intermittent. He has had no falls. He declines to see neurosurgery anymore. 10/09/2024 Morbid obesity (ICD- 10 - E66.01) He is involved with the weight-loss program at [facility]. His weight is stable. He remains in the morbidly obese range. He is no longer taking Wegovy due to insurance non-coverage. 01/24/2024 History of deep veno us thrombosis (DVT) of distal vein of left lower extremity (ICD-10 - Z86.718) He had a pulmonary embolism in 2016 when he was under the care of Dr. Bravo. He continues to have edema in his left leg below the knee which is chronic. There was no sign of acute thrombosis today. 03/03/2024 History of deep veno us thrombosis (DVT) of distal vein of left lower extremity (ICD-10 - Z86.718) He had a pulmonary embolism in 2015 when he was under the care of Dr. Bravo. He continues to have edema in his left leg below the knee which is chronic. There was no sign of acute thrombosis today. 10/09/2024 Primary insomnia (ICD-10 - F51.01) He continues to have difficulty finding a comfortable position to sleep. I have suggested various types of pillows for him and he will try them. 03/03/2024 Reactive depression (ICD-10 - F32.9) Once again he is noncompliant with recommendations for surgical relief of the cervical spinal cord. He is mentally competent to make decisions today. He is being and he is depressed but he is seeing a therapist regularly. He says he is taking his antidepressant medication. I have reviewed with him the consequences of not having surgery. 10/09/2024 Back pain of lumbar region with sciatica (ICD-10 - M54.40) His neck pain has been mild lately and a has no arm weakness. His back pain is moderate, but he is able to walk without a limp and is only intermittent. He has had no falls. He declines to see neurosurgery anymore. 10/09/2024 History of pulmonary embolism (ICD-10 - Z86.711) There was no shortness of breath or calf tenderness today. He'll be monitored for recurrence. There is no sign today of recurrent venous thromboembolism. 10/09/2024 History of deep veno us thrombosis (DVT) of distal vein of left lower extremity (ICD-10 - Z86.718) He had a pulmonary embolism in 2016 when he was under the care of Dr. Bravo. He continues to have edema in his left leg below the knee which is chronic. There was no sign of acute thrombosis today. 10/09/2024 Osteoarthritis of cervical spine, unspecified spinal osteoarthritis complication status (ICD-10 - M47.812) He has consistently refused to have neurosurgery on his neck. 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 He remains ambulatory and is hyperreflexive in his lower extremities. Again, today we broached this issue and he refuses to consider any surgical referral or to have any surgical procedure. 10/09/2024 Encephalomalacia (ICD-10 - G93.89) He continues to have lower extremity hyperreflexia and pain in his neck with range of motion. He refuses to consider a surgical approach. I have refilled his pregabalin. 10/09/2024 Reactive depression (ICD-10 - F32.9) Once again he is noncompliant with recommendations for surgical relief of the cervical spinal cord. He is mentally competent to make decisions today. He is being and he is depressed but he is seeing a therapist regularly. He says he is taking his antidepressant medication. I have reviewed with him the consequences of not having surgery. 10/09/2024 Daytime somnolence (ICD-10 - R40.0) His sleep study has been rescheduled. Plan Of Treatment Pending Test Test Name Order Date URINE DIP STICK 03/03/2024 PROFILE, FASTING (COMPREHENSIVE METABOLI C) 10/26/2022 PROFILE, FASTING (COMPREHENSIVE METABOLI C) 04/29/2022 PROFILE, FASTING (COMPREHENSIVE METABOLI C) 09/20/2023 PROFILE, FASTING (COMPREHENSIVE METABOLI C) 10/09/2024 PROFILE, FASTING (COMPREHENSIVE METABOLI C) 05/30/2021 PROFILE, FASTING (COMPREHENSIVE METABOLI C) 03/03/2024 PROFILE, FASTING (COMPREHENSIVE METABOLI C) 01/24/2024 LIPID PANEL 01/24/2024 LIPID PANEL 10/26/2022 LIPID PANEL 04/29/2022 PSA, TOTAL 01/24/2024 PSA, TOTAL 10/26/2022 PSA, TOTAL 04/29/2022 PSA, TOTAL 09/20/2023 PSA, TOTAL 10/09/2024 PSA, TOTAL 03/03/2024 CBC w DIFF 01/24/2024 CBC w DIFF 10/26/2022 CBC w DIFF 04/29/2022 CBC w DIFF 09/20/2023 CBC w DIFF 05/30/2021 CBC w DIFF 10/09/2024 VARICELLA ZOSTER-IMMUNE STATUS 0 RUBEOLA IGG (MEASLES) 12/27/2019 MUMPS AB IGG 12/27/2019 TETANUS ANTITOXOID ANTIBODY 12/27/2019 MRI CERVICAL SPINE NO CONTRAST 9 MRI LUMBAR SPINE W&WO CONTRAST 8 VITAMIN D 25-OH TOTAL 04/29/2022 CBC WITH AUTO DIFF 03/03/2024 Bordetella pertussis toxin (PT) Antibody (IgG), Immunoassay 01/03/2020 Lipid Panel 10/09/2024 Lipid Panel 03/03/2024 Lipid Panel 09/20/2023 Lipid Panel 05/30/2021 VDRL Qualitative CSF 08/27/2020 Next Appt Details Provider Name:Malcom Elias, 10/30/2024 02:45:00 PM, [address] [place] [address] [address], [place], [phone], Provider Name:Malcom Elias, 03/05/2025 02:30:00 PM, [address] [place] [address] [address], [place], [id number], Insurance Providers Payer Name Payer Address Payer Phone Subscriber Number Group Number Insured Name Patient Relationship to Insured Coverage Start Date Coverage End Date MEDICARE NGS [address] [place] [address] [id number] MARLENY FALK Self - patient is the insured MEDICA[place] [address] [place] [id number] MARLENY FALK Self - patient is the insured Medical (General) History Medical History History ICD Code Lumbar disc disease M51.9 essential hypertension insomnia chronic pain. Lumbar spine morbid obesity history of DVT left leg summer 2015 history of pulmonary embolism. 2016, gemini ter in place. Vena cava skin lesion, right pinna neck pain, February 2018 {'Pulmonary Embolism': 'Past medical his tory'} Surgical History Surgery Date(Month/Year) No history tooth extraction 09/2018 filter in vena cava, DVT left leg with p ulmonary embolism 11/2015 lumbar fusion, Dr. Huerta 2014 Hospitalization History Reason Date(Month/Year) No history
--- OUTSIDE RECORDS SUMMARY | 2024-10-26 14:21 | XMS_ITS | Encounter Summary ---
Author Organization [employer] Address [address] [facility] [address] [place] [address] Care Team Providers Care Telephone Answering Service Operator Name Role Phone Unavailable Primary Care Provider Unavailabl e Reason for Visit * Reason Onset Date Comments rs no show and cancelled/wait list 10/03/2024 Encounter Details Date Type Department Care Team (Late st Contact Info) Description 10/03/2024 Telephone C [facility] [address] [place] [address] Ghada Tatum rs no show and cancelled/wait list Social History Tobacco Use Types Packs/Day Years Used Date Smoking Tobacco: Never Assessed Sex and Gender Information Value Date Recorded Sex Assigned at Male 12/22/2023 10:02 AM EDT Legal Sex Male 10:45 AM EST Gender Identity Male 12/22/2023 10:02 AM EDT Sexual Orientation Straight 05/01/2024 2: 36 PM EST documented as of this encounter Miscellaneous Notes * Telephone Encounter - Nicol Romero - 10/03/2024 10:37 AM EDT Patient called in looking to rs no show and cancelled appts. He was scheduled as new patient per Bridget in the past and then rescheduled. He is considered new patient and is looking for new appt. Informed patient that information would be forwarded to [facility] dental however he is on the wait list and would be waiting for a call to come in for appt DR documented in this encounter Plan of Treatment Not on file documented as of this encounter Visit Diagnoses Not on filedocumented in this encounter
--- OUTSIDE RECORDS SUMMARY | 2024-10-26 14:21 | XMS_ITS ---
Author Organization Malcom Elias III, MD Address [address] [place] [address] Care Team Providers Care Assurance Manager Insurance Name Role Phone Malcom Elias Primary Care Provider [phone] Allergies Allergen (clinical drug ingredient) Drug/Non Drug Allergy documented on EMR Reaction Allergy Type Onset Date Status No Known Drug Allergy Unknown Drug Allergy Active Reason For Referral Reason Consult and Treat Left Shoulder Pain [...] and patient made aware Referral Priority Routine REASON FOR VISIT right knee pain since Wednesday, Left shoulder pain x 1 month Medications Medication SIG (Take, Route, Frequency, Duration) [...] (Patch) as directed Externally daily 04/13/2024 Active Social History Tobacco Use: Social History Observation Description Date Details (start date - stop date) Never Smoker NA - NA Sex Assigned At : Social History Observation Description Sex Assigned At Male Tobacco Use/Smoking Question Answer Notes Patient is a nonsmoker Additional Findings: Tobacco Non-User Aggressive non-smoker Problems Problem Type SNOMED Code ICD Code Onset Dates Problem Status W/U Status Risk Notes Problem [id number] Right anterior knee pain (M25.561) Active confirmed He has been referred to orthopedics with a possible tear in his meniscus. Problem [id number] Pain in left shoulder (M25.512) Active confirmed He has been referred to orthopedics with a possible tear in his rotator cuff. Vital Signs Temperature 97.2 degrees Fahrenheit 10/10/19 25 Blood pressure systolic 137 mm Hg 10/10/19 25 Blood pressure diastolic 81 mm Hg 025 Heart Rate 78 /min 10/09/2024 Height 71 in 10/09/2024 Weight 307 lbs 10/09/2024 BMI 42.81 kg/m2 10/09/2024 Encounters Encounter Location Date Provider Diagnosis Malcom Elias III, MD [address] [place] [address] [place] [address] 10/09/2024 Malcom Elias Pain in left shoulde [...] Reactive depression F32.9 and Daytime somnolence R40.0 Assessments Encounter Date Diagnosis (ICD Code) Assessment Notes T reatment Notes Treatment Clinical Notes 10/09/2024 Pain in left shoulde r (ICD-10 - M25.512) He has been referred to orthopedics with a possible tear in his rotator cuff. 10/09/2024 Right anterior knee pain (ICD-10 - M25.561) He has been referred to orthopedics with a possible tear in his meniscus. 10/09/2024 Essential hypertensi on (ICD-10 - I10) His blood pressure is 137/81. No change in his regimen is needed today. 10/09/2024 Erectile dysfunction , unspecified erectile dysfunction type (ICD-10 - N52.9) This problem has been resolved with the use of oral medication. No change in his regimen was needed today. 10/09/2024 Morbid obesity (ICD- 10 - E66.01) He is involved with the weight-loss program at [facility]. His weight is stable. He remains in the morbidly obese range. He is no longer taking Wegovy due to insurance non-coverage. 10/09/2024 Primary insomnia (ICD-10 - F51.01) He continues to have difficulty finding a comfortable position to sleep. I have suggested various types of pillows for him and he will try them. 10/09/2024 Back pain of lumbar region with [...] study has been rescheduled. Plan Of Treatment Medication Medication Name Sig Start Date Stop Date Notes Lisinopril-hydroCHLOROth iazide 10-12.5 MG 1 tablet Orally Once a day 10/26/2022 Betamethasone Dipropionate 0.05 % 1 application Externally Once a day 03/03/2024 Wegovy 0.25 MG/0.5ML 0.5 mL Subcutaneous 0.25mg once a week for 4 weeks 06/27/2024 DX: E66.01 Morbid obesity Lidocaine & Adhesive Sheets 5 % (Patch) as directed Externally daily 04/13/2024 Pending Test Test Name Order Date PROFILE, FASTING (COMPREHENSIVE METABOLI C) 10/09/2024 PSA, TOTAL 10/09/2024 CBC w DIFF 10/09/2024 Lipid Panel 10/09/2024 Referrals Referral Date Details 10/09/2024 10/09/2024, Consult and Treat Left Shoulder Pain Right Knee Pain Questioning Meniscal Tear of Right Knee, TRACEY PEREZ Next Appt Details Follow Up: 3 Weeks, Reason: OV Provider Name:Malcom Elias, 10/30/2024 02:45:00 PM, [address] [place] [address] [address], [place], [phone], Provider Name:Malcom Elias, 03/05/2025 02:30:00 PM, [address] [place] [address] [place], [address], Progress Notes * MARLENY WILLISDOB:1970 (54 yo M)Acc No.[id number]:10/09/2024 Patient:?MARLENY WILLIS Provider:?Malcom Elias MD :1970???Age:54 Y???Sex:Male Jonathan e:10/09/2024 Address:[address] [place], [id number] Subjective: * Chief Complaints: * ???right knee pain since Wed dayLe shoulder pain x 1 month * HPI: ???COVID-19 Screening:?He returns to the office with orthopedic complaints.? He is seen Dr. Perez in the past in the orthopedic clinic.? On October 06, 2024 he was watching a moving when he felt a sensation in his right knee.? Since that time, without trauma, he has had pain with weightbearing in the left knee.? There was crepitus on range of motion today, but no effusion.? He was noted to limp in the office. He also says that for the last 2 months he has had a severe pain with elevation of the left shoulder.? It is interfering with his sleep and he would like to see a diagnosis of the problem and begin treatment.? On examination today, he could not lift the shoulder above the heart rising.? Range of motion of the shoulder with it down was pain free.? Our concern is the rotator cuff and the meniscus. ?Questions?Have you had any new onset fever, chills, cough, congestion, sore throat, shortness of breath, muscle aches??No * ROS:?General/Constitutional:?pain?Left shoulder and right knee.?Chills?denies.?Fatigue?admits.?Fever?denies.?ENT:?Decreased hearing?denies.?Respiratory:?Cough?denies.?Cardiovascular:?Chest pain with exertion?denies.?Dyspnea on exertion?denies.?Shortness of breath?denies.?Gastrointestinal:?Constipation?occasional.?Decreased appetite?denies.?Diarrhea?denies.?Heartburn?denies.?Nausea?denies.?Rectal bleeding?denies.?Vomiting?denies.?Hematology:?bruising?denies.?petechiae?denies.?Swollen glands?none have been noted.?Genitourinary:?Frequent urination?once a night.?Musculoskeletal:?Muscle aches?denies.?Painful joints?Left shoulder, right knee.?Sciatica?denies.?Weakness?denies.?Skin:?Itching?denies.?Rash?denies.?Skin lesion(s)?denies.?Neurologic:?Difficulty speaking?denies.?Dizziness?denies.?Headache?denies.?Low back pain?denies.?Psychiatric:?Depressed mood?denies.? * Medical History:? * Surgical History:?lumbar fus ion, Dr. Huerta 2015filter in vena cava, DVT left leg with pulmonary embolism 11/2015tooth extraction 09/2018No history * Hospitalization/Major Diagno stic Procedure:?No history * Family History:?Father: kee kennedy, diagnosed with DM, HTN, CVD.?Mother: 60 yrs.?3 son(s) , 2 daughter(s) - healthy. .? There is no family history of malignancy or of thrombophilia or blood clotting disorders. * Social History:?Tobacco Use:?Tobacco Use/Smoking?Patient is a?nonsmoker ?Additional Findings: Tobacco Non-User?Aggressive non-smoker * Medications:?TakingWegovy 0. 25 MG/0.5ML Solution Auto-injector 0.5 mL Subcutaneous 0.25mg once a week for 4 weeks , Notes to Pharmacist: DX: E66.01 Morbid obesityLidocaine & Adhesive Sheets 5 % (Patch) Kit as directed Externally daily Lisinopril-hydroCHLOROthiazide 10-12.5 MG Tablet 1 tablet Orally Once a day Betamethasone Dipropionate 0.05 % Cream 1 application Externally Once a day Medication List reviewed and reconciled with the patientTaking Wegovy 0.25 MG/0.5ML Solution Auto-injector 0.5 mL Subcutaneous 0.25mg once a week for 4 weeks , Notes to Pharmacist: DX: E66.01 Morbid obesityTaking Lidocaine & Adhesive Sheets 5 % (Patch) Kit as directed Externally daily Taking Lisinopril-hydroCHLOROthiazide 10-12.5 MG Tablet 1 tablet Orally Once a day Taking Betamethasone Dipropionate 0.05 % Cream 1 application Externally Once a day Medication List reviewed and reconciled with the patient * Allergies:?No Known Drug All ergyno[Allergies Verified] Objective: * Vitals:?Ht: 71, Wt: 307, BMI :42.81, BP: 137/81, HR: 78, Temp: 97.2, Wt-k.25. * Examination: ???General Examination: ?GENERAL APPEARANCE:?pleasant, well nourished, well developed, in no acute distress, calm and relaxed, morbidly obese, man, morbidly obese, man.?HEAD:?atraumatic, normocephalic.?EYES:?eomi, perrla, anicteric, conjugate.?EARS:?normal.?NOSE:?septum intact.?ORAL CAVITY:?normal, unremarkable.?NECK/THYROID:?no jugular venous distention, no carotid bruit, thyroid normal.?LYMPH NODES:?no enlarged lymph nodes,spleen normal.?SKIN:?no suspicious lesions, anicteric.?HEART:?no clicks, gallops, murmurs, or rubs, regular rhythm, S1, S2 normal, no s3, or vascular bruits.?LUNGS:?clear to auscultation .?BREASTS:??no masses palpable bilaterally.?ABDOMEN:?bowel sounds normal, no ascites, no organomegaly, no mass, morbid obesity, morbid obesity.?RECTAL EXAM:?not examined.?MUSCULOSKELETAL:?Decreased range of motion lumbar spine because of pain, decreased range of motion left shoullder because of pain, crepitus, right knee.?PERIPHERAL PULSES:?normal.?NEUROLOGIC:?alert and oriented, cranial nerves 2-12 grossly intact, deep tendon reflexes 2+ symmetrical, motor strength normal upper and lower extremities, sensory exam intact.?PSYCH:?alert, oriented.? Assessment: * Assessment: 1.?Pain in left shoulder - M 25.512 (Primary)???Notes :He has been referred to orthopedics with a possible tear in his rotator cuff.???2.?Right anterior knee pain - M25.561???Notes :He has been referred to orthopedics with a possible tear in his meniscus.???3.?Essential hypertension - I10???Notes :His blood pressure is 137/81.? No change in his regimen is needed today.???4.?Erectile dysfunction, unspecified erectile dysfunction type - N52.9???Notes :This problem has been resolved with the use of oral medication.? No change in his regimen was needed today.???5.?Morbid obesity - E66.01???Notes :He is involved with the weight-loss program at [facility].? His weight is stable.? He remains in the morbidly obese range.? He is no longer taking Wegovy due to??insurance non-coverage.???6.?Primary insomnia - F51.01???Notes :He continues to have difficulty finding a comfortable position to sleep. I have suggested various types of pillows for him and he will try them.???7.?Back pain of lumbar region with sciatica - M54.40???Notes :His neck pain has been mild lately and a has no arm weakness. His back pain is moderate, but he is able to walk without a limp and is only intermittent. He has had no falls. He declines to see neurosurgery anymore.???8.?History of pulmonary embolism - Z86.711???Notes :There was no shortness of breath or calf tenderness today. He'll be monitored for recurrence. There is no sign today of recurrent venous thromboembolism.???9.?History of deep venous thrombosis (DVT) of distal vein of left lower extremity - Z86.718???Notes :He had a pulmonary embolism in 2016 when he was under the care of Dr. Bravo. He continues to have edema in his left leg below the knee which is chronic. There was no sign of acute thrombosis today.???10.?Osteoarthritis of cervical spine, unspecified spinal osteoarthritis complication status - M47.812???Notes :He has consistently refused to have neurosurgery on his neck. 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 He remains ambulatory and is hyperreflexive in his lower extremities. Again, today we broached this issue and he refuses to consider any surgical referral or to have any surgical procedure.???11.?Encephalomalacia - G93.89???Notes :He continues to have lower extremity hyperreflexia and pain in his neck with range of motion. He refuses to consider a surgical approach. I have refilled his pregabalin.???12.?Reactive depression - F32.9???Notes :Once again he is noncompliant with recommendations for surgical relief of the cervical spinal cord. He is mentally competent to make decisions today. He is being and he is depressed but he is seeing a therapist regularly. He says he is taking his antidepressant medication. I have reviewed with him the consequences of not having surgery.???13.?Daytime somnolence - R40.0???Notes :His sleep study has been rescheduled.??? Plan: * Treatment: 2.?Essential hypertension?LAB: PROFILE, FASTING (COMPREHENSIVE METABOLIC) ?LAB: PSA, TOTAL ?LAB: CBC w DIFF ?LAB: Lipid Panel 3.?Erectile dysfunction, uns pecified erectile dysfunction type?LAB: PROFILE, FASTING (COMPREHENSIVE METABOLIC) ?LAB: PSA, TOTAL ?LAB: CBC w DIFF ?LAB: Lipid Panel 4.?Morbid obesity?LAB: PROFILE, FASTING (COMPREHENSIVE METABOLIC) ?LAB: PSA, TOTAL ?LAB: CBC w DIFF ?LAB: Lipid Panel 5.?Others? Referral To:TRACEY PEREZ??Orthopedic Surgery ?Reason:Consult and Treat Left Shoulder Pain Right Knee Pain Questioning Meniscal Tear of Right Knee * Procedure Codes:? * Preventive Medicine:? ??Counseling:?Care goal follow-up plan:?Counseling for abnormal BMI given?Yes ?Above Normal BMI Follow-up?Dietary management education, guidance, and counseling, Dietary needs education, Exercise promotion: strength training, Exercise promotion: stretching, Feeding regime, Giving encouragement to exercise, Lifestyle education regarding diet, Nutrition / feeding management, Nutrition therapy, Prescribed activity/exercise education, Prescribed diet education, Prescribed dietary intake, Special diet education, Weight monitoring , Intervention, Order not done: Medical or Other reason not done * Follow Up:?3 Weeks (Reason: OV) * Images: * Sign off status: Completed true * Provider:?Malcom Elias MD Date:?09/20 Generated for Zabrina nick/Mateusz/Nancyitting on:?10/26/2024 02:21 PM EDT History and Physical Notes * HPI (History of Present Illness) Category Sub-Category Detail Notes COVID-19 Screening Questions Have you had any new onset fever, chills, cough, congestion, sore throat, shortness of breath, muscle aches?: No Examination Category Sub-Category Detail Notes General Examination GENERAL APPEARANCE: pleasant , well nourished, well developed, in no acute distress, calm and relaxed, morbidly obese, man, morbidly obese, man HEAD: atraumatic, normocep halic EYES: eomi, perrla, anicte ga, conjugate EARS: normal NOSE: septum intact NECK/THYROID: no jugular venous di stention, no carotid bruit, thyroid normal HEART: no clicks, gallops, murmurs, or rubs, regular rhythm, S1, S2 normal, no s3, or vascular bruits LUNGS: clear to auscultatio n ABDOMEN: bowel sounds normal, no ascites, no organomegaly, no mass, morbid obesity, morbid obesity NEUROLOGIC: alert and oriented, cranial nerves 2-12 grossly intact, deep tendon reflexes 2+ symmetrical, motor strength normal upper and lower extremities, sensory exam intact SKIN: no suspicious lesion s, anicteric PERIPHERAL PULSES: normal BREASTS: no masses palpable b ilaterally MUSCULOSKELETAL: Decreased range of m otion lumbar spine because of pain, decreased range of motion left shoullder because of pain, crepitus, right knee LYMPH NODES: no enlarged lymph no ceferino,spleen normal RECTAL EXAM: not examined PSYCH: alert, oriented ORAL CAVITY: normal, unremarkable Consultation Request Notes Referral Date Referring Provider Referred Provider Not es 10/09/2024 Malcom Elias NOAH Consult and T reat Left Shoulder Pain Right Knee Pain Questioning Meniscal Tear of Right Knee
== END 2024-10-26 13:45 | disposition home or self-care (01) ==
LOC: HO.HOS 13:16
PROVIDERS: PCP Internal Medicine Medical Oncology; Visit Provider Orthopaedic Surgery
DX: M17.0 Bilateral primary osteoarthritis of knee (principal)
CPT/HCPCS: 99213

== ENCOUNTER → 2024-10-26 13:15 | Outpatient (BNVA) | payer MEDICARE, MEDICAID, SELFPAY | PROVIDERS: PCP Internal Medicine Medical Oncology; Visit Provider Orthopaedic Surgery | DX: M17.0 Bilateral primary osteoarthritis of knee (principal) | CPT/HCPCS: 99212 ==

== ENCOUNTER 2025-01-24 09:30 | Outpatient (REF) | payer MEDICARE, MEDICAID, SELFPAY ==
--- OUTSIDE RECORDS SUMMARY | 2024-12-27 05:24 | XMS_ITS ---
Author Organization Malcom Elias III, MD Address [address] [place] [address] [place] [address] Care Team Providers Care Certified Dietary Manager Name Role Phone Malcom Elias Primary Care Provider Reason For Referral Reason left ankle pain and swelling Diagnosis 1 Other chronic pain ( G89.29) Diagnosis 2 Pain in left ankle a nd joints of left foot (M25.572) Referral Organization Malcom Elias III, MD Referring Provider First Name Malcom Referring Provider Last Name Curt Referring Provider Speciality Internal M edicine Referred Provider [place], [facility] Referred Provider Specialty Orthopedic S urgery General Notes Rossy Dan 01/08/2025 10:59:18 AM > Referral was faxed to [facility] and patient was made aware he has to call and make his appointment. He stated he will call back and inform office of when it is.Jessica Suzanne CMA 01/23/2025 02:19:01 PM > PT STATED HE HAS APPT WITH [facility] ON 02/01/2025 AT 1PM Referral Priority Routine Referral Appointment Date 02/01/2025 REASON FOR VISIT left ankle swelling and pain Social History Sex Assigned At : Social History Observation Description Sex Assigned At Male Encounters Encounter Location Date Provider Diagnosis Malcom Elias III, MD [address] [place] [address] [place] [address] 12/27/2024 Malcom Elias Plan Of Treatment Referrals Referral Date Details 12/27/2024 12/27/2024, left ank le pain and swelling, [facility] [place] Next Appt Details Provider Name:Malcom Elias, 03/05/2025 02:30:00 PM, [address] [place] [address] [address] [address], [facility] [place], [phone], Progress Notes * MARLENY FALKDOB:1970 (54 yo M)Acc No.[id number]:12/27/2024 Patient: MARLENY CHATMAN :1970 A ge:54 Y S ex:Male Address:[address] [place] [address] [place], [address] Subjective: * Chief Complaints: * L eft ankle swelling and pain * Medical History: * Surgical History: * Hospitalization/Major Diagno stic Procedure: * Medications: Objective: * Vitals: * Physical Examination: Assessment: Plan: * Treatment: * Procedure Codes: * true * Date: Generated for Zabrina nick/Mateusz/Nancyitting on: 0 01/24/2025 09:53 AM EDT Consultation Request Notes Referral Date Referring Provider Referred Provider Not es 12/27/2024 Malcom Elias, [facility] left ankle pain and swelling
[2025-01-24 09:39] LABS: MANUAL DIFF FLAG NO
--- OUTSIDE RECORDS SUMMARY | 2025-01-24 09:53 | XMS_ITS | Clinical Summary ---
Author Organization [employer] Address [address] [facility] [address] [place] [address] Care Team Providers Care Web Content Director Name Role Phone Unavailable Primary Care Provider Unavailabl e Social History Tobacco Use Types Packs/Day Years [...] Panel 1970 SDOH Screening 1970 Sigmoidoscopy 1970 Disability Screening 1971 Alcohol/Substance Use Screening 1983 Tobacco Screening 1983 Hepatitis C Screening 1989 DTaP/Tdap/Td Vaccines (1 - Tdap) 1990 Hepatitis B Vaccines (1 of 3 - 19+ 3-dose series) 1990 Pneumococcal Vaccine: 50+ Ye ars (1 of 1 - PCV) 2021 Zoster Vaccines (1 of 2) 2021 COVID-19 Vaccine ( - 2023-2 5 season) 2024 Influenza Vaccine (#1) 2025 RSV Patients and Pa tients Aged 60 [...] patient's age to complete this topic Meningococcal B Vaccine Aged Out No l onger eligible based on patient's age to complete this topic Meningococcal Vaccine Aged Out No eva oksana eligible based on patient's age to complete this topic RSV under 20 months Aged Out No longe r eligible based on patient's age to complete this topic Rotavirus Vaccines Aged Out No longer eligible based on patient's age to complete this topic Insurance [facility] MEDICAID STAND ADULT
--- OUTSIDE RECORDS SUMMARY | 2025-01-24 09:54 | XMS_ITS | Clinical Summary ---
Author Organization [facility] Address [address] [place] [address] Phone Care Team Providers Care Management Liaison Name Role Phone Malcom Elias MD Primary Care Provider [phone] Encounters Date Type Department Care Team Description 01/05/2025 3:05 PM EDT - 01/05/2025 11:59 PM EDT Hospital Encounter [facility] Xray [address] [place] [address] Pain in left ankle and joints of left foot Discharge Disposition: Home or Self Care from Last 3 Months Surgical History Surgery Date Site/Laterality Comments OTHER SURGICAL HISTORY 2014 PROCEDURE: LA ARTHRODESIS POSTERIOR INTERBODY 1 NTRSPC LUMBAR; COMMENT: L4-L5 OTHER SURGICAL HISTORY 2015 PROCEDURE: HISTORY OTHER; COMMENT: IVC filter MULTIPLE TOOTH EXTRACTIONS 09/2018 PROCEDURE: HISTORICAL DENTAL EXTRACTION Medical History Medical History Date Comments Chronic pain of both knees 01/10/2018 DX:Ch ronic pain of both knees 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 01/16/2019 DX:DJD (degenerative joint d isease) of cervical spine; COMMENT: Impinging spinal canal Essential hypertension 01/10/2018 DX:Essent ial hypertension History of DVT (deep vein thrombosis) 01/10/2018 DX:History of DVT (deep vein thrombosis); COMMENT: 2015 IVC filter, coumadin x 6 mo; no recurrence Insomnia 01/16/2019 DX:Insomnia Lumbar disc disease with radiculopathy 01/10/2018 DX:Lumbar disc disease with radiculopathy; COMMENT: S/p L4-L5 fusion in 2015, second procedure is warranted but not followed through Morbid obesity with BMI of 4 0.0-44.9, adult ([facility] V24, [facility] V28) 01/10/2018 DX:Morbid obesity wit h BMI of 40.0-44.9, adult (HCC) Myelomalacia of cervical cor d ([facility] V24, [facility] V28) 01/16/2019 DX:Myelomalacia of cervical cord (HCC); COMMENT: MRI of neck, surgery warranted,. Pt postponed surgery from Jul 2018 till Jan 2019. PCP Malcom Elias advised patient on 11/21/18 to move surgery up to December or he would take this as a sign of lack of commitment to the procedure and drug seeking behavior and begin tapering dose of Oxycodone Family History Medical History Relation Name Comments Diabetes Father gout, htn, CAD Alzheimer's disease Mother age 60 Relation Name Status Comments Father Alive Mother Social History Tobacco Use Types Packs/Day Years Used Date Smoking Tobacco: Never Smokeless Tobacco: Never Alcohol Use Standard Drinks/Week Comments No 0 (1 standard drink = 0.6 oz pur e alcohol) Sex and Gender Information Value Date Recorded Sex Assigned at Not on file Legal Sex Male 10:57 PM EST Gender Identity Not on file Sexual Orientation Not on file Obstetrics History Plan of Treatment Upcoming Encounters Date Type Department Care Team (Late st Contact Info) Description 08/20/2025 10:30 AM EST Office Visit Bariatric Surgery - [place] [address] [address] Claudette Denson PA [address] [facility] [address] [place] [address] Health Maintenance Due Date Last Done Comments DTaP,Tdap,and Td Vaccines (1 - Tdap) 1990 Hepatitis B Vaccines (1 of 3 - 19+ 3-dose series) 1990 Pneumococcal Vaccine: 50+ Ye ars (1 of 1 - PCV) 2021 Zoster Vaccines (1 of 2) 2021 COVID-19 Vaccine ( - 2023-2 5 season) 2024 Depression Screening 06/21/2024 Cholesterol Screening (Lipid Panel) 01/06/2025 Colorectal Cancer Screening: Colonoscopy 01/06/2025 HIV Screening 01/06/2025 Hepatitis C Screening 01/06/2025 Hypertension/CHF/CAD Annual BMP Blood Test 01/06/2025 Medicare Annual Wellness Visit 01/06/2025 Social Influencers of Health Screening 01/06/2025 Influenza Vaccine (#1) 2025 HIB Vaccines Aged Out No longer eligi [...] on patient's age to complete this topic MMR Vaccines Aged Out No longer eligi ble based on patient's age to complete this topic Meningococcal ACWY Vaccine Aged Out N o longer eligible based on patient's age to complete this topic Meningococcal B Vaccine Aged Out No l onger eligible based on patient's age to complete this topic RSV Immunization Patients Un pepe 20 months Aged Out No longer eligible b ased on patient's age to complete this topic Varicella Vaccines Aged Out No longer eligible based on patient's age to complete this topic Procedures Procedure Name Priority Date/Time Associated Diagnosis Comments XR ANKLE 3+ VIEWS LEFT Routine 01/05/2025 3:14 PM EDT Pain in left ankle and joints of left foot from Last 3 Months Results * XR Ankle 3+ Views Left (01/05/2025 3:14 PM EDT) Anatomical Region Laterality Modality Lower Extremities, Ankle Left Radiogr aphic Imaging 01/06/2025 9:18 AM EDT Impressions 01/06/2025 9:20 AM EDT Somewhat limited lateral view. Probable remodeling deformity of the distal fibula perhaps related to a remote injury. No definite acute abnormality -------- FINAL REPORT -------- Dictated By: Lawson Velasquez Dictated Date: 01/06/2025 09:18 ET Assigned Physician: Lawson Velasquez Reviewed and Electronically Signed By: Lawson Velasquez Signed Date: 01/06/2025 09:20 ET Workstation ID: [id number] Transcribed By: Self Edit Transcribed Date: 01/06/2025 09:18 ET Narrative 01/06/2025 9:20 AM EDT EXAMINATION: LEFT ANKLE CLINICAL INFORMATION: Pain COMPARISON: None. TECHNIQUE: 3 views left ankle FINDINGS: The attempted lateral view contains obliquity and the foot is plantarflexed. Chronic appearing deformity of the distal fibula could be remodeling from remote injury. No acute fracture or subluxation. No suspicious focal bony lesion. There are some mild degenerative changes. I suspect some soft tissue swelling. Procedure Note Lawson Velasquez MD - 01/06/2025 EXAMINATION: LEFT ANKLE CLINICAL INFORMATION: Pain COMPARISON: None. TECHNIQUE: 3 views left ankle FINDINGS: The attempted lateral view contains obliquity and the foot isplantarflexed. Chronic appearing deformity of the distal fibula could be remodeling fromremote injury. No acute fracture or subluxation. No suspicious focal bony lesion. Thereare some mild degenerative changes. I suspect some soft tissue swelling. IMPRESSION: Somewhat limited lateral view. Probable remodeling deformity of the distalfibula perhaps related to a remote injury. No definite acute abnormality -------- FINAL REPORT -------- Dictated By: Lawson Velasquez Dictated Date: 01/06/2025 09:18 ET Assigned Physician: Lawson Velasquez Reviewed and Electronically Signed By: Lawson Velasquez Signed Date: 01/06/2025 09:20 ET Workstation ID: [id number] Transcribed By: Self Edit Transcribed Date: 01/06/2025 09:18 ET Malcom Elias MD IMG XR PROCEDURES Final Result from Last 3 Months Insurance MEDICAID - [place] MEDICARE Care Teams Management Liaison Relationship Specialty Start Date End Date Malcom Elias MD [address] [address] PCP - General Oncology 01/05/25
[2025-01-24 10:45] LABS: Hematocrit 43.4 % (42.0-52.0); Hemoglobin 14.1 g/dl (14.0-18.0); Imm Gran Abs Auto 0.02 X10*3/uL (0.00-0.03); Imm Gran Pct Auto 0.3 % (0.0-0.4); Lymphocytes Absolute Auto 2.4 X10*3/uL (1.2-4.9); Mean Corpuscular HGB Conc 32.5 g/dl (31.0-36.0); Mean Corpuscular Hemoglobin 30.5 pg (27.0-33.0); Mean Corpuscular Volume 93.7 fL (80.0-98.0); NRBC Abs Auto 0.000 X10*3/uL (0.0-0.012); NRBC Pct Auto 0.0 /100WBC (0.0-0.2); Platelet Count 343 X10*3/uL (160-400); Red Blood Count 4.63 X10*6/uL (4.60-5.80); White Blood Count 5.9 X10*3/uL (4.8-10.8)
[2025-01-24 11:25] LABS: Alanine Aminotransferase 35 U/L (0-40); Albumin Level 4.3 g/dL (3.5-5.0); Alkaline Phosphatase 95 U/L (39-117); Anion Gap 9 (12-20); Aspartate Amino Transferase 30 U/L (5-37); Blood Urea Nitrogen 12 mg/dL (9-16); Calcium 9.1 mg/dL (8.4-10.2); Carbon Dioxide 28 mmol/L (22-29); Chloride 106 mmol/L (96-108); Estimated Glomerular Filt Rate > 60; Potassium 4.0 mmol/L (3.3-5.1); Sodium 139 mmol/L (135-145); Total Protein 8.0 g/dL (6.5-8.0)
== END 2025-01-24 09:31 | disposition home or self-care (01) ==
LOC: HO.LAB 09:30
PROVIDERS: PCP Internal Medicine Medical Oncology; Visit Provider Internal Medicine Medical Oncology
DX: K42.9 Umbilical hernia without obstruction or gangrene (principal); R19.05 Periumbilic swelling, mass or lump
CPT/HCPCS: 36415; 80053; 85025

== ENCOUNTER 2025-02-01 13:42 | Outpatient (AMB) | payer MEDICARE, MEDICAID, SELFPAY ==
--- OUTSIDE RECORDS SUMMARY | 2024-12-27 05:24 | XMS_ITS ---
Author Organization Malcom Elias III, MD Address [address] [place] [address] [place] [address] Care Team Providers Care Cuff Knitter Name Role Phone Malcom Elias Primary Care Provider Reason For Referral Reason left ankle pain and swelling Diagnosis 1 Other chronic pain ( G89.29) Diagnosis 2 Pain in left ankle a nd joints of left foot (M25.572) Referral Organization Malcom Elias III, MD Referring Provider First Name Malcom Referring Provider Last Name Curt Referring Provider Speciality Internal M edicine Referred Provider [place], [facility] Referred Provider Specialty Orthopedic S urgery General Notes Rossy Dan 01/08/2025 10:59:18 AM > Referral was faxed to [facility] and patient was made aware he has [...] Date Provider Diagnosis Malcom Elias III, MD [address] [place] [address] [place] [address] 12/27/2024 Malcom Elias Plan Of Treatment Referrals Referral Date Details 12/27/2024 12/27/2024, left ank le pain and swelling, [facility] [place] Next Appt Details Provider Name:Malcom Elias, 03/05/2025 02:30:00 PM, [address] [place] [address] [place], [facility] [place], [address], Progress Notes * MARLENY FALKDOB:1970 (54 yo M)Acc No.[id number]:12/27/2024 Patient: MARLENY CHATMAN :1970 A ge:54 Y S ex:Male Address:[address] [place] [address] [place], [address] Subjective: * Chief Complaints: * L eft ankle swelling and pain * Medical History: * Surgical History: * Hospitalization/Major Diagno stic Procedure: * Medications: Objective: * Vitals: * Physical Examination: Assessment: Plan: * Treatment: * Procedure Codes: * true * Date: Generated for Zabrina nick/Mateusz/Nancyitting on: 0 02/01/2025 02:34 PM EDT Consultation Request Notes Referral Date Referring Provider Referred Provider Not 12/27/2024 Malcom Elias, [facility] left ankle pain and swelling
--- NOTE | 2025-02-01 13:48 | A.OFFVIS_ITS ---
Intake Visit Reasons: OV- B/L Knee OA f/u- Last Euflexxa 06/24/23 Intake Note: Rajan is a 54 year old male who presents today for Repeat Bilateral Knee Euflexxa #1 ( he will need to book two additional appts when checking out) Allergies No Known Allergies Allergy (Unverified 06/24/23 10:26) HPI HPI OV- B/L Knee OA f/u- Last Euflexxa 06/24/23: Details: Rajan is a 54 year old male who presents today for Repeat Bilateral Knee Euflexxa #1. [facility] Surgical History (Updated 09/18/24 @ 14:02 by RADHA Cavanaugh) History of lumbar fusion S/P IVC filter Physical Exam Extrem Other: Skin clean dry and intact bilateral knees Office Procedures Joint Inj/Aspir; Non-Pain Clin Joint Injection/Drain Details: Injected Euflexxa. Site was prepped using aseptic technique. Patient tolerated the procedure well. Shoulders, Hips, Knees, Knee Large Joint Injection 65064: Bilateral Knee Coding Procedure code (CPT) selection complete Assessment & Plan Assessment & Plan (1) Bilateral primary osteoarthritis of knee: Code(s): M17.0 - Bilateral primary osteoarthritis of knee Category: Medical Plan: 54-year-old gentleman with bilateral knee osteoarthritis. He has benefit from Euflexxa in the past and I injected bilateral knees today. Follow up 1 week. Coding Level of Care Code Est Pt Level 2 (85093) Diagnoses Bilateral primary osteoarthritis of knee M17.0 CPT Codes Shoulders, Hips, Knees, - Knee Large Joint Injection 96325: Bilateral Knee ([id number])
--- OUTSIDE RECORDS SUMMARY | 2025-02-01 14:34 | XMS_ITS | Clinical Summary ---
Author Organization [employer] Address [address] [facility] [address] [place] [address] Care Team Providers Care Business Account Executive Name Role Phone Unavailable Primary Care Provider [...] patient's age to complete this topic Insurance [facility] MEDICAID STAND ADULT
--- OUTSIDE RECORDS SUMMARY | 2025-02-01 14:34 | XMS_ITS | Clinical Summary ---
Author Organization [facility] Address [address] [place] [address] Phone Care Team Providers Care Accounting Associate Name Role Phone Malcom Elias MD Primary Care Provider [phone] Encounters Date Type Department Care Team Description 01/05/2025 3:05 PM EDT - 01/05/2025 11:59 PM EDT Hospital Encounter [facility] Xray [address] [place] [address] Pain in left ankle and joints of left foot Discharge Disposition: Home or Self Care from Last 3 Months Surgical History Surgery Date Site/Laterality Comments OTHER SURGICAL HISTORY 2014 PROCEDURE: [place] ARTHRODESIS POSTERIOR INTERBODY 1 NTRSPC LUMBAR; COMMENT: [...] obesity with BMI of 4 0.0-44.9, adult ([facility] V24, [facility] V28) 01/10/2018 DX:Morbid obesity wit h BMI of 40.0-44.9, adult (HCC) Myelomalacia of cervical cor d ([facility] V24, [facility] V28) 01/16/2019 DX:Myelomalacia of cervical cord (HCC); [...] AM EST Office Visit Bariatric Surgery - [place] [address] [address] Claudette Denson PA [address] [facility] [address] [place] [address] Health Maintenance Due Date Last Done Comments [...] Velasquez Reviewed and Electronically Signed By: Lawson eVlasquez Signed Date: 01/06/2025 09:20 ET Workstation ID: [id number] Transcribed By: Self Edit Transcribed Date: 01/06/2025 [...] Signed Date: 01/06/2025 09:20 ET Workstation ID: [id number] Transcribed By: Self Edit Transcribed Date: 01/06/2025 09:18 ET Malcom Elias MD IMG XR PROCEDURES Final Result from Last 3 Months Insurance [place] - [place] MEDICARE Care Teams Accounting Associate Relationship Specialty Start Date End Date Malcom Elias MD [address] [address] PCP - General Oncology 01/05/25
== END 2025-02-01 14:04 | disposition home or self-care (01) ==
LOC: HO.HOS 13:43
PROVIDERS: PCP Internal Medicine Medical Oncology; Visit Provider Orthopaedic Surgery
DX: M17.0 Bilateral primary osteoarthritis of knee (principal)
CPT/HCPCS: 20610

== ENCOUNTER → 2025-02-01 13:42 | Outpatient (BNVA) | payer MEDICARE, MEDICAID, SELFPAY | PROVIDERS: PCP Internal Medicine Medical Oncology; Visit Provider Orthopaedic Surgery | DX: M17.0 Bilateral primary osteoarthritis of knee (principal) | CPT/HCPCS: 20610; J7323 ==

== ENCOUNTER 2025-02-08 12:44 | Outpatient (AMB) | payer MEDICARE, MEDICAID, SELFPAY ==
--- NOTE | 2025-02-08 12:49 | A.OFFVIS_ITS ---
Intake Visit Reasons: OV- B/L Knee OA f/u- Euflexxa #2 Intake Note: Rajan is a 54 year old male who presents today for Bilateral Knee Euflexxa injetions #2. Patient reports that he is already having mild releif from the first injections. Allergies No Known Allergies Allergy (Unverified 06/24/23 10:26) HPI HPI OV- B/L Knee OA f/u- Euflexxa #2: Details: Rajan is a 54 year old male who presents today for Bilateral Knee Euflexxa injetions #2. Patient reports that he is already having mild releif from the first injections. [facility] Surgical History (Updated 09/18/24 @ 14:02 by RADHA Cavanaugh) History of lumbar fusion S/P IVC filter Physical Exam Extrem Other: Skin clean dry and intact bilateral knees Office Procedures Joint Inj/Aspir; Non-Pain Clin Joint Injection/Drain Details: Injected Euflexxa. Site was prepped using aseptic technique. Patient tolerated the procedure well. Shoulders, Hips, Knees, Knee Large Joint Injection 21603: Bilateral Knee Coding Procedure code (CPT) selection complete Assessment & Plan Assessment & Plan (1) Bilateral primary osteoarthritis of knee: Code(s): M17.0 - Bilateral primary osteoarthritis of knee Category: Medical Plan: This is a 54-year-old with bilateral knee OA. Here for 2/3 Euflexxa. Injected bilateral knees today without incident. Follow up 1 week. Coding Level of Care Code Est Pt Level 2 (38279) Diagnoses Bilateral primary osteoarthritis of knee M17.0 CPT Codes Shoulders, Hips, Knees, - Knee Large Joint Injection : Bilateral Knee ([id number])
== END 2025-02-08 13:54 | disposition home or self-care (01) ==
LOC: HO.HOS 12:44
PROVIDERS: PCP Internal Medicine Medical Oncology; Visit Provider Orthopaedic Surgery
DX: M17.0 Bilateral primary osteoarthritis of knee (principal)
CPT/HCPCS: 20610

== ENCOUNTER → 2025-02-08 12:44 | Outpatient (BNVA) | payer MEDICARE, MEDICAID, SELFPAY | PROVIDERS: PCP Internal Medicine Medical Oncology; Visit Provider Orthopaedic Surgery | DX: M17.0 Bilateral primary osteoarthritis of knee (principal) | CPT/HCPCS: 20610; J7323 ==

== ENCOUNTER 2025-02-15 12:57 | Outpatient (AMB) | payer MEDICARE, MEDICAID, SELFPAY ==
--- OUTSIDE RECORDS SUMMARY | 2025-01-02 11:45 | XMS_ITS ---
Author Organization Malcom Elias III, MD Address [address] [place] [address] Care Team Providers Care Esl Instructor Name Role Phone Malcom Elias Primary Care Provider Allergies Allergen (clinical drug ingredient) Drug/Non Drug Allergy documented on EMR Reaction Allergy Type Onset Date Status No Known Drug Allergy Unknown Drug Allergy Active REASON FOR VISIT hernia, Morbid obesity to, left ankle swelling And pain, Chronic low back pain, Hypertension, History of DVT Medications Medication SIG (Take, Route, Frequency, Duration) [...] nonsmoker Additional Findings: Tobacco Non-User Aggressive non-smoker Vital Signs Temperature 97.1 degrees Fahrenheit 01/03/20 25 Blood pressure systolic 138 mm Hg 01/03/20 25 Blood pressure diastolic 82 mm Hg 025 Heart Rate 80 /min 01/02/2025 Respiratory Rate 16 /min 01/02/2025 Height 71 in 01/02/2025 Weight 306 lbs 01/02/2025 BMI 42.67 kg/m2 01/02/2025 Encounters Encounter Location Date Provider Diagnosis Malcom Elias III, MD [address] [place] [address] [place] [address] 01/02/2025 Malcom Elias Morbid obesity E66.0 1 ; Back pain of lumbar region with sciatica M54.40 ; Primary insomnia F51.01 ; Essential hypertension I10 ; History of pulmonary embolism Z86.711 ; History of deep venous thrombosis (DVT) of distal vein of left lower extremity Z86.718 ; Reactive depression F32.9 and Right anterior knee pain M25.561 Assessments Encounter Date Diagnosis (ICD Code) Assessment Notes Treatment Notes Treatment Clinical Notes 01/02/2025 Morbid obesity (ICD-10 - E66.01) He is involved with the weight-loss program at [facility]. His weight is stable. He remains in the morbidly obese range. He is no longer taking Wegovy due to insurance non-coverage. 01/02/2025 Back pain of lumbar region with sciatica (ICD-10 - M54.40) His neck pain has been mild lately and a has no arm weakness. His back pain is moderate, but he is able to walk without a limp and is only intermittent. He has had no falls. He declines to see neurosurgery anymore. 01/02/2025 Primary insomnia (ICD-10 - F51.01) He continues to have difficulty finding a comfortable position to sleep. I have suggested various types of pillows for him and he will try them. 01/02/2025 Essential hypertension (ICD-10 - I10) His blood pressure is 137/81. No change in his regimen is needed today. 01/02/2025 History of pulmonary embolism (ICD-10 - Z86.711) There was no shortness of breath or calf tenderness today. He'll be monitored for recurrence. There is no sign today of recurrent venous thromboembolism. 01/02/2025 History of deep venous thrombosis (DVT) of distal vein of left lower extremity (ICD-10 - Z86.718) He had a pulmonary embolism in 2015 when he was under the care of Dr. Bravo. He continues to have edema in his left leg below the knee which is chronic. There was no sign of acute thrombosis today. 01/02/2025 Reactive depression (ICD-10 - F32.9) Once again he is noncompliant with recommendations for surgical relief of the cervical spinal cord. He is mentally competent to make decisions today. He is being and he is depressed but he is seeing a therapist regularly. He says he is taking his antidepressant medication. I have reviewed with him the consequences of not having surgery. 01/02/2025 Right anterior knee pain (ICD-10 - M25.561) He has been referred to orthopedics with a possible tear in his meniscus. Plan Of Treatment Medication Medication Name Sig [...] 4 weeks 06/27/2024 DX: E66.01 Morbid obesity Pending Test Test Name Order Date XR ANKLE LT 01/02/2025 Next Appt Details Follow Up: February, Reason : annual exam review labs Provider Name:Malcom Elias, 03/20/2025 03:00:00 PM, [address] [place] [address] [address], [place], [address], Progress Notes * MARLENY FALKDOB:1970 (54 yo M)Acc No.[id number]:01/02/2025 Progress Notes Patient: MARLENY CHATMAN Provider: Maicol Elias MD :1970 A ge:54 Y S ex:Male Date:01/02/2025 Address:[facility] [place] [id number] Subjective: * Chief Complaints: * H erniaMorbid obesity toleft ankle swelling And painChronic low back painHypertensionHistory of DVT * HPI: C OVID-19 Screening: Mitesh kennedy returns for medical management. He reports his insomnia is unchanged and he sleeps poorly. His left ankle has been painful and has trace edema. He has been referred to orthopedics. He sees Dr. Arenas in orthopedics at [facility] for arthritis of the knees as well. His next appointment with orthopedic his next month. The left lateral knee is painful today. His low back pain is much improved. His neck pain has resolved.His body mass index is 40. Questions H ave you had any new onset fever, chills, cough, congestion, sore throat, shortness of breath, muscle aches? N o * ROS: G eneral/Constitutional: pain B oth knees and left ankle. C hills d enies.?Fatigue a dmits. F ever d enies. E NT: Decreased hearing d enies. R espiratory: Cough d enies. C ardiovascular: Chest pain with exertion d enies. D yspnea on exertion?denies. S hortness of breath d enies. G astrointestinal: Constipation o ccasional. D ecreased appetite d enies. D iarrhea d enies. H eartburn d enies. N ausea d enies. R ectal bleeding d enies. V omiting d enies. H ematology: bruising d enies. p etechiae d enies. S wollen glands n one have been noted. G enitourinary: Frequent urination o nce a night. M usculoskeletal: Muscle aches d enies. P ainful joints L eft ankle, both knees. S ciatica d enies. W eakness d enies. S kin: Itching d enies. R justin d enies. S kin lesion(s)?denies. N eurologic: Difficulty speaking d enies. D izziness d enies.?Headache d enies. L ow back pain d enies. P sychiatric: Depressed mood w hich is mild. * Medical History: * Surgical History: l umbar fusion, Dr. Huerta 2015filter in vena cava, DVT left leg with pulmonary embolism 11/2015tooth extraction 09/2018No history * Hospitalization/Major Diagno stic Procedure: N o history * Family History: F ather: alive, diagnosed with CVD, DM, HTN. M other: 60 yrs. 3 son(s) , 2 daughter(s) - healthy. . There is no family history of malignancy or of thrombophilia or blood clotting disorders. * Social History: T obacco Use: T obacco Use/Smoking P atmiguel is a n onsmoker A dditional Findings: Tobacco Non-User A ggressive non-smoker * Medications: T akingLidocaine & Adhesive Sheets 5 % (Patch) Kit as directed Externally daily Lisinopril-hydroCHLOROthiazide 10-12.5 MG Tablet 1 tablet Orally Once a day Betamethasone Dipropionate 0.05 % Cream 1 application Externally Once a day Taking Lidocaine & Adhesive Sheets 5 % (Patch) Kit as directed Externally daily Taking Lisinopril-hydroCHLOROthiazide 10-12.5 MG Tablet 1 tablet Orally Once a day Taking Betamethasone Dipropionate 0.05 % Cream 1 application Externally Once a day DiscontinuedWegovy 0.25 MG/0.5ML Solution Auto-injector 0.5 mL Subcutaneous 0.25mg once a week for 4 weeks , Notes to Pharmacist: DX: E66.01 Morbid obesityMedication List reviewed and reconciled with the patientDiscontinued Wegovy 0.25 MG/0.5ML Solution Auto-injector 0.5 mL Subcutaneous 0.25mg once a week for 4 weeks , Notes to Pharmacist: DX: E66.01 Morbid obesityMedication List reviewed and reconciled with the patient * Allergies: N o Known Drug Allergyno[Allergies Verified] Objective: * Vitals: H t: 71, Wt: 306, BMI:42.67, BP: 138/82, HR: 80, RR: 16, Temp: 97.1, Wt-k.8. * Examination: G eneral Examination: GENERAL APPEARANCE: p frannie, well nourished, well developed, in no acute distress, calm and relaxed, morbidly obese, man. HEAD: a traumatic, normocephalic. EYES: e dirk, perrla, anicteric, conjugate. EARS: n ormal. NOSE: s eptum intact. ORAL CAVITY: n ormal, unremarkable. NECK/THYROID: n o jugular venous distention, no carotid bruit, thyroid normal. LYMPH NODES: n o enlarged lymph nodes,spleen normal. SKIN: n o suspicious lesions, anicteric. HEART: n o clicks, gallops, murmurs, or rubs, regular rhythm, S1, S2 normal, no s3, or vascular bruits. LUNGS: c lear to auscultation . BREASTS: no masses palpable bilaterally. ABDOMEN: b owel sounds normal, no ascites, no organomegaly, no mass, morbid obesity. RECTAL EXAM: n ot examined. MUSCULOSKELETAL: T race edema left ankle, pain to range of motion left ankle mild crepitus knees. PERIPHERAL PULSES: n ormal. NEUROLOGIC: a lert and oriented, cranial nerves 2-12 grossly intact, deep tendon reflexes 3+ symmetrical, motor strength normal upper and lower extremities, sensory exam intact. PSYCH: a lert, oriented, cognitive function intact, thought process logical, goal directed, speech clear, mood depressed. Assessment: * Assessment: 1. M orbid obesity - E66.01 (Primary) N otes :He is involved with the weight-loss program at [facility]. His weight is stable. He remains in the morbidly obese range. He is no longer taking Wegovy due to insurance non-coverage. 2 . B ack pain of lumbar region with sciatica - M54.40 N otes :His neck pain has been mild lately and a has no arm weakness. His back pain is moderate, but he is able to walk without a limp and is only intermittent. He has had no falls. He declines to see neurosurgery anymore. 3 . P rimary insomnia - F51.01 N otes :He continues to have difficulty finding a comfortable position to sleep. I have suggested various types of pillows for him and he will try them. 4 . E ssential hypertension - I10 N otes :His blood pressure is 137/81. No change in his regimen is needed today. 5 . H istory of pulmonary embolism - Z86.711 N otes :There was no shortness of breath or calf tenderness today. He'll be monitored for recurrence. There is no sign today of recurrent venous thromboembolism. 6 . H istory of deep venous thrombosis (DVT) of distal vein of left lower extremity - Z86.718 N otes :He had a pulmonary embolism in 2016 when he was under the care of Dr. Bravo. He continues to have edema in his left leg below the knee which is chronic. There was no sign of acute thrombosis today. 7 . R eactive depression - F32.9 N otes :Once again he is noncompliant with recommendations for surgical relief of the cervical spinal cord. He is mentally competent to make decisions today. He is being and he is depressed but he is seeing a therapist regularly. He says he is taking his antidepressant medication. I have reviewed with him the consequences of not having surgery. 8 . R ight anterior knee pain - M25.561 N otes :He has been referred to orthopedics with a possible tear in his meniscus. Plan: * Treatment: * Imaging: * I maging: XR ANKLE LT * Procedure Codes: * Preventive Medicine: Counseling: C are goal follow-up plan: Counseling for abnormal BMI given Y es Above Normal BMI Follow-up D ietary needs education * Follow Up: Jessica nieto (Reason: annual exam review labs) * Images: * Sign off status: Completed true * Provider: Maicol Elias MD Date: 0 01/02/2025 Generated for Zabrina nick/Mateusz/eTransmitting on: 0 02/15/2025 01:36 PM EDT History and Physical Notes * HPI (History of Present Illness) Category Sub-Category Detail Notes COVID-19 Screening Questions Have you had any new onset fever, chills, cough, congestion, sore throat, shortness of breath, muscle aches?: No Examination Category Sub-Category Detail Notes General Examination GENERAL APPEARANCE: pleasant , well nourished, well developed, in no acute distress, calm and relaxed, morbidly obese, man HEAD: atraumatic, normocep halic EYES: eomi, perrla, anicte ga, conjugate EARS: normal NOSE: septum intact NECK/THYROID: no jugular venous di stention, no carotid bruit, thyroid normal HEART: no clicks, gallops, murmurs, or rubs, regular rhythm, S1, S2 normal, no s3, or vascular bruits LUNGS: clear to auscultatio n ABDOMEN: bowel sounds normal, no ascites, no organomegaly, no mass, morbid obesity NEUROLOGIC: alert and oriented, cranial nerves 2-12 grossly intact, deep tendon reflexes 3+ symmetrical, motor strength normal upper and lower extremities, sensory exam intact SKIN: no suspicious lesion s, anicteric PERIPHERAL PULSES: normal BREASTS: no masses palpable b ilaterally MUSCULOSKELETAL: Trace edema left ank le, pain to range of motion left ankle mild crepitus knees LYMPH NODES: no enlarged lymph no ceferino,spleen normal RECTAL EXAM: not examined PSYCH: alert, oriented, cog nitive function intact, thought process logical, goal directed, speech clear, mood depressed ORAL CAVITY: normal, unremarkable
--- OUTSIDE RECORDS SUMMARY | 2025-01-23 10:15 | XMS_ITS ---
Author Organization Malcom Elias III, MD Address [address] [place] [address] Care Team Providers Care Machine Rigger Name Role Phone Malcom Elias Primary Care Provider Allergies Allergen (clinical drug ingredient) Drug/Non Drug Allergy documented on EMR Reaction Allergy Type Onset Date Status No Known Drug Allergy Unknown Drug Allergy Active Reason For Referral Reason evaluate and treatme nt for hernia Diagnosis 1 Periumbilical hernia (K42.9) Referral Organization Malcom Elias III, MD Referring Provider First Name Malcom Referring Provider Last Name Curt Referring Provider Speciality Internal M edicine Referred Provider Roman Welch Referred Provider Specialty General Surg nhan General Notes Pam Lopez CMA 02/06 09:48:53 AM >waiting for Ct scan which will be done at on 03/06/2025 results then will send referral to Dr Welch Referral Priority Routine REASON FOR VISIT Diet stasis rectus, Periumbilical hernia, Chronic lumbar back pain, Hypertension, Insomnia, Historyof pulmonary embolism, History of DVT, Arthritis cervical spine, History of depression Medications Medication SIG (Take, Route, Frequency, Duration) [...] tablet Orally Once a day 10/26/2022 Active Social History Tobacco Use: Social History [...] Problem Status W/U Status Risk Notes Problem [id number] Periumbilical hernia (K42.9) Active confirmed In the past he has complained about his diagnosis stasis rectus thinking it was a hernia. At structure is unchanged. There is a new area around the umbilicus consistent with a hernia.It is being evaluuated with a CT scan and then a surgical consultation. Vital Signs Temperature 97.3 degrees Fahrenheit 01/24/20 25 Blood pressure systolic 143 mm Hg 01/24/20 25 Blood pressure diastolic 86 mm Hg 025 Heart Rate 90 /min 01/23/2025 Height 71 in 01/23/2025 Weight 314 lbs 01/23/2025 BMI 43.79 kg/m2 01/23/2025 Encounters Encounter Location Date Provider Diagnosis Malcom Elias III, MD [address] [place] [address] [place] [address] 01/23/2025 Malcom Elias Right anterior knee pain M25.561 ; Periumbilical hernia K42.9 ; Back pain of lumbar region with sciatica M54.40 ; Primary insomnia F51.01 ; Essential hypertension I10 ; History of pulmonary embolism Z86.711 and Morbid obesity E66.01 Assessments Encounter Date Diagnosis (ICD Code) Assessment Notes Treat ment Notes Treatment Clinical Notes 01/23/2025 Right anterior knee pain (ICD-10 - M25.561) He has been referred to orthopedics with a possible tear in his meniscus. 01/23/2025 Periumbilical hernia (ICD-10 - K42.9) In the past he has complained about his diagnosis stasis rectus thinking it was a hernia. At structure is unchanged. There is a new area around the umbilicus consistent with a hernia.It is being evaluuated with a CT scan and then a surgical consultation. 01/23/2025 Back pain of lumbar region with sciatica (ICD-10 - M54.40) His neck pain has been mild lately and a has no arm weakness. His back pain is moderate, but he is able to walk without a limp and is only intermittent. He has had no falls. He declines to see neurosurgery anymore. 01/23/2025 Primary insomnia (ICD-10 - F51.01) He continues to have difficulty finding a comfortable position to sleep. I have suggested various types of pillows for him and he will try them. 01/23/2025 Essential hypertension (ICD-10 - I10) His blood pressure is 137/81. No change in his regimen is needed today. 01/23/2025 History of pulmonary embolism (ICD-10 - Z86.711) There was no shortness of breath or calf tenderness today. He'll be monitored for recurrence. There is no sign today of recurrent venous thromboembolism. 01/23/2025 Morbid obesity (ICD-10 - E66.01) He is involved with the weight-loss program at [facility]. His weight is stable. He remains in the morbidly obese range. He is no longer taking Wegovy due to insurance non-coverage. Plan Of Treatment Medication Medication Name Sig [...] 1 tablet Orally Once a day 10/26/2022 Pending Test Test Name Order Date PROFILE, RANDOM (COMPREHENSIVE METABOLIC ) 01/23/2025 CBC w DIFF 01/23/2025 CT ABD WITH CONTRAST 01/23/2025 Referrals Referral Date Details 01/23/2025 01/23/2025, evaluate and treatment for hernia, Roman Welch Next Appt Details Follow Up: after ct scan, Re ason: ov review ct scan Provider Name:Malcom Elias, 03/20/2025 03:00:00 PM, [address] [place] [address] [address], [place], [address], Progress Notes * DOMINGA FALK:1970 (54 yo M)Acc No.[id number]:01/23/2025 Progress Notes Patient: MARLENY CHATMAN Provider: Maicol Elias MD :1970 A ge:54 Y S ex:Male Date:01/23/2025 Address:[facility] [address] [facility], [id number] Subjective: * Chief Complaints: * D iet stasis rectusPeriumbilical herniaChronic lumbar back painHypertensionInsomniaHistory of pulmonary embolismHistory of DVTArthritis cervical spineHistory of depression * HPI: C OVID-19 Screening: He has developed a lumpy area and just above and to the right of his him colitis. His diet stasis practice is unchanged. On examination today, it seems that this is a hernia around the umbilical area. A CT scan of this area has been requested.? As has been a surgical consultation. It is symptomatic causing pain that there does not appear to be incarceration. He and his family have requested a surgical opinion about proper management. Questions H ave you had any new onset fever, chills, cough, congestion, sore throat, shortness of breath, muscle aches? N o * ROS: G eneral/Constitutional: pain M ild discomfort at the umbilicus. C hills d enies. F atigue a dmits. F ever d enies. E NT: Decreased hearing d enies. R espiratory: Cough d enies. C ardiovascular: Chest pain with exertion d enies. D yspnea on exertion?denies. S hortness of breath d enies. G astrointestinal: Constipation d enies. D ecreased appetite d enies.?Diarrhea d enies. H eartburn d enies. N ausea d enies. R ectal bleeding?denies. V omiting d enies. H ematology: bruising d enies. p etechiae d enies. S wollen glands n one have been noted. G enitourinary: Frequent urination o nce a night. M usculoskeletal: Muscle aches d enies. P ainful joints d enies. S ciatica d enies. W eakness d [...] T obacco Use: T obacco Use/Smoking P atient is a n onsmoker A dditional Findings: Tobacco Non-User A ggressive non-smoker * Medications: T akingWegovy 0.25 MG/0.5ML Solution Auto-injector 0.5 mL Subcutaneous 0.25mg once a week for 4 weeks , Notes to Pharmacist: DX: E66.01 Morbid obesityLidocaine & Adhesive Sheets 5 % (Patch) Kit as directed Externally daily Lisinopril- hydroCHLOROthiazide 10-12.5 MG Tablet 1 tablet Orally Once [...] Objective: * Vitals: H t: 71, Wt: 314, BMI:43.79, BP: 143/86, HR: 90, Temp: 97.3, Wt-k.43. * Examination: G eneral Examination: GENERAL APPEARANCE: p leasant, well nourished, well developed, in no acute distress, calm and relaxed: morbidly obese: man. HEAD: a traumatic, normocephalic. EYES: e dirk, perrla, anicteric, conjugate. EARS: n ormal. NOSE: s eptum intact. ORAL CAVITY: n ormal, unremarkable. NECK/THYROID: n o jugular venous distention, no carotid bruit, thyroid normal, Decreased range of motion in all directions. LYMPH NODES: n o enlarged lymph nodes,spleen normal. SKIN: n o suspicious lesions, anicteric. HEART: n o clicks, gallops, murmurs, or rubs, regular rhythm, S1, S2 normal, no s3, or vascular bruits. LUNGS: c lear to auscultation . BREASTS: no masses palpable bilaterally. ABDOMEN: b owel sounds normal, no ascites, no organomegaly, no mass: morbid obesity, Large umbilical hernia, which is not incarcerated her painful. RECTAL EXAM: n ot examined. MUSCULOSKELETAL: e xtremities unremarkable, no clubbing, cyanosis or edema. PERIPHERAL PULSES: n ormal. NEUROLOGIC: a lert and oriented, cranial nerves 2-12 grossly intact, deep tendon reflexes 2+ symmetrical In the upper extremities and 3+ bilaterally symmetrical at the knees, motor strength normal upper and lower extremities, sensory exam intact. PSYCH: a lert, oriented. Assessment: * Assessment: 1. P eriumbilical hernia - K42.9 (Primary) N otes :In the past he has complained about his diagnosis stasis rectus thinking it was a hernia.? At structure is unchanged. There is a new area around the umbilicus consistent with a hernia.It is being evaluuated with a CT scan and then a surgical consultation. 2 . R ight anterior knee pain - M25.561 N otes :He has been referred to orthopedics with a possible tear in his meniscus. 3 . B ack pain of lumbar region with sciatica - M54.40 N otes :His neck pain has been mild lately and a has no arm weakness. His back pain is moderate, but he is able to walk without a limp and is only intermittent. He has had no falls. He declines to see neurosurgery anymore. 4 . P rimary insomnia - F51.01 N otes :He continues to have difficulty finding a comfortable position to sleep. I have suggested various types of pillows for him and he will try them. 5 . E ssential hypertension - I10 N otes :His blood pressure is 137/81. No change in his regimen is needed today. 6 . H istory of pulmonary embolism - Z86.711 N otes :There was no shortness of breath or calf tenderness today. He'll be monitored for recurrence. There is no sign today of recurrent venous thromboembolism. 7 . M orbid obesity - E66.01 N otes :He is involved with the weight-loss program at [facility]. His weight is stable. He remains in the morbidly obese range. He is no longer taking Wegovy due to insurance non-coverage. Plan: * Treatment: 2. R ight anterior knee pain Continue Wegovy Solution Auto-injector, 0.25 MG/0.5ML, 0.5 mL, Subcutaneous, 0.25mg once a week for 4 weeks, Notes to Pharmacist: DX: E66.01 Morbid obesity; C ontinue Lidocaine & Adhesive Sheets Kit, 5 % (Patch), as directed, Externally, daily; C ontinue Lisinopril-hydroCHLOROthiazide Tablet, 10-12.5 MG, 1 tablet, Orally, Once a day; C ontinue Betamethasone Dipropionate Cream, 0.05 %, 1 application, Externally, Once a day. * Procedure Codes: * Preventive Medicine: Counseling: C are goal follow-up plan: Counseling for abnormal BMI given Y es Above Normal BMI Follow-up D ietary management education, guidance, and counseling, Dietary needs education, Exercise promotion: strength training, Exercise promotion: stretching, Feeding regime, Giving encouragement to exercise, Lifestyle education regarding diet, Nutrition / feeding management, Nutrition therapy, Prescribed activity/exercise education, Prescribed diet education, Prescribed dietary intake, Special diet education, Weight monitoring , Intervention, Order not done: Medical or Other reason not done * Follow Up: a fter ct scan (Reason: ov review ct scan) * Images: * Sign off status: Completed true * Provider: Maicol Elias MD Date: 0 01/23/2025 Generated for Zabrina nick/Mateusz/eTgardeniasmitting on: 0 02/15/2025 01:35 PM EDT History and Physical Notes * HPI (History of Present Illness) Category Sub-Category Detail Notes COVID-19 Screening Questions Have you had any new onset fever, chills, cough, congestion, sore throat, shortness of breath, muscle aches?: No Examination Category Sub-Category Detail Notes General Examination GENERAL APPEARANCE: pleasant , well nourished, well developed, in no acute distress, calm and relaxed: morbidly obese: man HEAD: atraumatic, normocep halic EYES: eomi, perrla, anicte ga, conjugate EARS: normal NOSE: septum intact NECK/THYROID: no jugular venous di stention, no carotid bruit, thyroid normal, Decreased range of motion in all directions HEART: no clicks, gallops, murmurs, or rubs, regular rhythm, S1, S2 normal, no s3, or vascular bruits LUNGS: clear to auscultatio n ABDOMEN: bowel sounds normal, no ascites, no organomegaly, no mass: morbid obesity, Large umbilical hernia, which is not incarcerated her painful NEUROLOGIC: alert and oriented, cranial nerves 2-12 grossly intact, deep tendon reflexes 2+ symmetrical In the upper extremities and 3+ bilaterally symmetrical at the knees, motor strength normal upper and lower extremities, [...] Date Referring Provider Referred Provider Not es 01/23/2025 Malcom Elias John evaluate and treatment for hernia
--- OUTSIDE RECORDS SUMMARY | 2025-02-01 11:03 | XMS_ITS ---
Author Organization Malcom Elias III, MD Address [address] [place] [address] [place] [address] Care Team Providers Care Salary Manager Name Role Phone Malcom Elias Primary Care Provider REASON FOR VISIT needs labs prior to having the ct scan Social History Sex Assigned At : Social History Observation Description Sex Assigned At Male Encounters Encounter Location Date Provider Diagnosis Malcom Elias III, MD [address] [place] [address] [place] [address] 02/01/2025 Malcom Elias Essential hypertensi on I10 and Periumbilical hernia K42.9 Assessments Encounter Date Diagnosis (ICD Code) Assessment Notes Treat ment Notes Treatment Clinical Notes 02/01/2025 Essential hypertension (ICD-10 - I10) 02/01/2025 Periumbilical hernia (ICD-10 - K42.9) Plan Of Treatment Pending Test Test Name Order Date PROFILE, RANDOM (COMPREHENSIVE METABOLIC ) 02/01/2025 Next Appt Details Provider Name:Malcom Elias, 03/20/2025 03:00:00 PM, [address] [place] [address] [address], [place], [address], Progress Notes * MARLENY FALKDOB:1970 (54 yo M)Acc No.[id number]:02/01/2025 Patient: MARLENY CHATMAN :1970 A ge:54 Y S ex:Male Address:[place], [address] Subjective: * Chief Complaints: * N eeds labs prior to having the ct scan * Medical History: * Surgical History: * Hospitalization/Major Diagno stic Procedure: * Medications: Objective: * Vitals: * Physical Examination: Assessment: * Assessment: 1. E ssential hypertension - I10 2 . P eriumbilical hernia - K42.9 ? Plan: * Treatment: 2. P eriumbilical hernia L AB: PROFILE, RANDOM (COMPREHENSIVE METABOLIC) * Procedure Codes: * true * Date: Generated for Zabrina nick/Mateusz/Nancyitting on: 0 02/15/2025 01:36 PM EDT
--- NOTE | 2025-02-15 13:00 | MHC.OFFVIS ---
Intake Visit Reasons: OV- Bilateral Knee Euflexxa #3 Intake Note: Rajan is a 54 year old male who presents today for his Final Bilateral Knee Euflexxa Injections #3. Patient reports that he is feeling some mild releif. Allergies No Known Allergies Allergy (Unverified 06/24/23 10:26) HPI HPI OV- Bilateral Knee Euflexxa #3: Details: Rajan is a 54 year old male who presents today for his Final Bilateral Knee Euflexxa Injections #3. Patient reports that he is feeling some mild relief. [facility] Surgical History (Updated 09/18/24 @ 14:02 by RADHA Cavanaugh) History of lumbar fusion S/P IVC filter Physical Exam Extrem Other: Skin clean dry and intact Office Procedures Joint Inj/Aspir; Non-Pain Clin Joint Injection/Drain Details: Injected Euflexxa. Site was prepped using aseptic technique. Patient tolerated the procedure well. Shoulders, Hips, Knees, Knee Large Joint Injection : Bilateral Knee Coding Procedure code (CPT) selection complete Assessment & Plan Assessment & Plan (1) Bilateral primary osteoarthritis of knee: Code(s): M17.0 - Bilateral primary osteoarthritis of knee Category: Medical Plan: Injected bilateral knees Euflexxa. May follow up 3-6 months as needed. Coding Level of Care Code Est Pt Level 2 (20652) Diagnoses Bilateral primary osteoarthritis of knee M17.0 CPT Codes Shoulders, Hips, Knees, - Knee Large Joint Injection 39698: Bilateral Knee ([id number])
--- OUTSIDE RECORDS SUMMARY | 2025-02-15 13:36 | XMS_ITS | Clinical Summary ---
Author Organization [facility] Address [address] [place] [address] Phone Care Team Providers Care Coloring Checker Name Role Phone Malcom Elias MD Primary Care Provider [phone] Encounters Date Type Department Care Team Description 01/05/2025 3:05 PM EDT - 01/05/2025 11:59 PM EDT Hospital Encounter [facility] Xray [address] [place] [address] Pain in left ankle and joints of left foot Discharge Disposition: Home or Self Care from Last 3 Months Surgical History Surgery Date Site/Laterality Comments OTHER SURGICAL HISTORY 2014 PROCEDURE: [place] ARTHRODESIS POSTERIOR INTERBODY 1 NTRSPC LUMBAR; COMMENT: [...] obesity with BMI of 4 0.0-44.9, adult ([facility] V24, [facility] V28) 01/10/2018 DX:Morbid obesity wit h BMI of 40.0-44.9, adult (HCC) Myelomalacia of cervical cor d ([facility] V24, [facility] V28) 01/16/2019 DX:Myelomalacia of cervical cord (HCC); [...] AM EST Office Visit Bariatric Surgery - [address] [place] [address] Claudette Denson, PA [address] [place] [phone] Health Maintenance Due Date Last Done Comments [...] Signed Date: 01/06/2025 09:20 ET Workstation ID: [id number] Transcribed By: Self Edit Transcribed Date: 01/06/2025 [...] Signed Date: 01/06/2025 09:20 ET Workstation ID: [id number] Transcribed By: Self Edit Transcribed Date: 01/06/2025 09:18 ET Malcom Elias MD IMG XR PROCEDURES Final Result from Last 3 Months Insurance MED[place] - [place] MEDICARE Care Teams Coloring Checker Relationship Specialty Start Date End Date Malcom Elias MD [address] [facility] [address] [place] [address] PCP - General Oncology 01/05/25
--- OUTSIDE RECORDS SUMMARY | 2025-02-15 13:36 | XMS_ITS | Patient Health Record ---
Author Organization Malcom Elias III, MD Address [address] [place] [address] Care Team Providers Care Registered Radiologic Technologist Name Role Phone Malcom Elias Primary Care [...] 0.2 - 1.3 BLD 5-10 Negative - Complete Blood Count Auto Di ff (Not yet reviewed by provider) Interpretation: Performing Lab:[facility], [address] [place] [phone] Notes/Report: White Blood Count 5.9 4.8-10.8 X10*3/uL Red Blood Count 4.63 4.60-5.80 X10*6/uL Hemoglobin 14.1 14.0-18.0 g/dl Hematocrit 43.4 42.0-52.0 % Mean Corpuscular Volume 93.7 80.0-98.0 fL Mean Corpuscular Hemoglobin 30.5 27.0-33.0 pg Mean Corpuscular HGB Conc 32.5 31.0-36.0 g/dl Red Cell Distribution Width 12.8 11.0-16.0 % Platelet Count 343 160-400 X10*3/uL Mean Platelet Volume 9.0 9.4-12.4 fL Neutrophils Percent Auto 46.0 45-73 % Imm Gran Pct Auto 0.3 0.0-0.4 % Lymphocytes Percent Auto 39.9 20-40 % Monocytes Percent Auto 9.6 2-11 % Eosinophils Percent Auto 3.2 0-4 % Basophils Percent Auto 1.0 0-2 % NRBC Pct Auto 0.0 0.0-0.2 /100WBC Neutrophils Absolute Auto 2.7 2.0-8.3 x10*3/u L Imm Gran Abs Auto 0.02 0.00-0.03 X10*3/uL Lymphocytes Absolute Auto 2.4 1.2-4.9 X10*3/u L Monocytes Absolute Auto 0.6 0.1-1.2 X10*3/uL Eosinophils Absolute Auto 0.2 0.0-0.4 X10*3/u L Basophils Absolute Auto 0.1 0.0-0.2 X10*3/uL NRBC Abs Auto 0.000 0.0-0.012 X10*3/uL Comprehensive Met. Panel (No t yet reviewed by provider) Interpretation: Performing Lab:[facility], [address] [place] [phone] Notes/Report: Sodium 139 135-145 mmol/L Potassium 4.0 3.3-5.1 mmol/L Chloride 106 96-108 mmol/L Carbon Dioxide 28 22-29 mmol/L Anion Gap 9 12-20 Blood Urea Nitrogen 12 9-16 mg/dL Creatinine 1.04 0.5-1.4 mg/dL Estimated Glomerular Filt Rate > 60 Chronic Kidney Disease: Estimated GFR < 60 mL/min/1.73m2 Severe Kidney Disease: Estimated GFR < 15 mL/min/1.73m2 Glucose Random 90 60-115 mg/dL Calcium 9.1 8.4-10.2 mg/dL Bilirubin Total 1.0 0.0-1.0 mg/dL Aspartate Amino Transferase 30 5-37 U/L Alanine Aminotransferase 35 0-40 U/L Total Protein 8.0 6.5-8.0 g/dL Albumin Level 4.3 3.5-5.0 g/dL Alkaline Phosphatase 95 39-117 U/L Reason For Referral Reason Consult and Treat Diagnosis 1 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) Referral Organization Malcmo Elias III, MD Referring Provider First Name Malcom Referring Provider Last Name Curt Referring Provider Speciality Internal M edicine Referred Provider Nabil Hackett Referred Provider Specialty Dermatology General Notes Rossy Rodriguez 2023 03:30:36 PM EDT > Patient was advised from [facility] he has to contact their office first before the referral can be sent over and patient can be seen.Jennifer Amber 03/14/2024 03:09:26 PM > patient would like to referred to a different paste mixer, [facility] dermatologyJennifer Amber 03/30/2024 03:39:42 PM >Office [...] Referring Provider Speciality Internal edicine Referred Organization [facility] nter Referred Provider [facility], Gastroenterology Referred Address [address] [place] [address],[place], [place],[id number], Referred Provider Specialty Gastroentero logy General Notes Rossy Rodriguez 2023 03:30:19 PM EDT > Referral faxed with Progress noteJennifer Amber 03/30/2024 02:08:09 PM > Patient was contacted by [facility] gastro on 03/07 as well as they sent out a letter to the patients home to notify the patient to contact their office to schedule an appointment. Patient was also contacted by Dr. Peña office as well 03/30/24yS Amber 09/25/2024 02:25:32 PM > Patient was [...] MARLENY QUESADA Referred Provider Specialty Pulmonary [facility] General Notes D, 05/15/2024 10:26:12 AM > Referral Faxed with progress note., D, 10/11/2024 02:14:29 PM > Patient stated his father just had a heart attack and will reach out to Pulmonary when he can. Dr Elias made aware, D, 11/28/2024 09:06:23 AM > Reached out to patient left a message requesting a call back regarding the referral sent, questioning if patient has been able to be scheduled or seen., D, 01/30/2025 02:23:54 PM > Patient was scheduled for 01/29/25 in which the patient did not show. Patient was advised to contact their office to reschedule. Referral Priority Routine Referral Appointment Date 01/29/2025 Reason Consult and Treat Left Shoulder Pain Right Knee Pain Questioning Meniscal Tear of Right Knee Diagnosis 1 Left shoulder pain ( M25.512) Diagnosis 2 Right knee pain, uns pecified chronicity (M25.561) Referral Organization Malcom Elias III, MD Referring Provider First Name Malcom Referring Provider Last Name Curt Referring Provider Speciality Internal edicine Referred Provider TRACEY PEREZ Referred Provider Specialty Orthopedic S urgery General Notes D, 10/11/2024 02:13:59 PM > Referral was faxed with progress note and patient made aware Referral Priority Routine Referral Appointment Date 10/26/2024 Reason left ankle pain and swelling Diagnosis 1 Other chronic pain ( G89.29) Diagnosis 2 Pain in left ankle a nd joints of left foot (M25.572) Referral Organization Malcom Elias III, MD Referring Provider First Name Malcom Referring Provider Last Name Curt Referring Provider Speciality Internal edicine Referred Provider [facility] Referred Provider Specialty Orthopedic S urgery General Notes D, 01/08/2025 10:59:18 AM > Referral was faxed to [facility] and patient was made aware he has to call and make his appointment. He stated he will call back and inform office of when it is., Pam Lopez CORONER TRANSPORT TECHNICIAN 01/23/2025 02:19:01 PM > PT STATED HE HAS APPT WITH [facility] ON 02/01/2025 AT 1PM Referral Priority Routine Referral Appointment Date 02/01/2025 Reason evaluate and treatme nt for hernia Diagnosis 1 Periumbilical hernia (K42.9) Referral Organization Malcom Elias III, MD Referring Provider First Name Malcom Referring Provider Last Name Curt Referring Provider Speciality Internal M edicine Referred Provider Roman Welch Referred Provider Specialty General Surg nhan General Notes Pam Lopez CORONER TRANSPORT TECHNICIAN 02/06 09:48:53 AM >waiting for Ct scan which will be done at on 03/06/2025 results then will send referral to Dr Welch Referral Priority Routine Medications Medication SIG (Take, [...] tablet Orally Once a day 10/26/2022 Active Immunizations Vaccine Route Administration Date Status [...] Problem Status W/U Status Risk Notes Problem 1665556 Primary insomnia (F51.01) Active confirmed He continues to have difficulty finding a comfortable position to sleep. I have suggested various types of pillows for him and he will try them. Problem 20058751 Other chronic pain (G89.29) Active confirmed Problem 00131373900156211 Pain in left shoulder (M25.512) Active confirmed He has been referred to orthopedics with a possible tear in his rotator cuff. Problem 532039333 Erectile dysfunction, unspecified erectile dysfunction type (N52.9) Active confirmed This problem curtis s been resolved with the use of oral medication. No change in his regimen was needed today. Problem 73202593 Essential hypertension (I10) Active confirmed His blood pressure is 137/81. No change in his regimen is needed today. Problem 211461406 History of pulmonary embolism (Z86.711) Active confirmed There was no shortness of breath or calf tenderness today. He'll be monitored for recurrence. There is no sign today of recurrent venous thromboembolism. Problem 018732343 Morbid obesity (E66.01) Active confirmed He is involved with the weight-loss program at [facility]. His weight is stable. He remains in the morbidly obese range. He is no longer taking Wegovy due to insurance non-coverage. Problem 432724393 Back pain of lumbar region with sciatica (M54.40) Active confirmed His neck pain has been mild lately and a has no arm weakness. His back pain is moderate, but he is able to walk without a limp and is only intermittent. He has had no falls. He declines to see neurosurgery anymore. Problem 698008250 Osteoarthritis of cervical spine, unspecified spinal osteoarthritis [...] have any surgical procedure. Problem Daytime somnolence (625411974091) Daytime somnolence (R40.0) Active confirmed His sleep study has been rescheduled. Problem 54860690 Reactive depression (F32.9) Active confirmed Once again he i s noncompliant with recommendations for surgical relief of the cervical spinal cord. He is mentally competent to make decisions today. He is being and he is depressed but he is seeing a therapist regularly. He says he is taking his antidepressant medication. I have reviewed with him the consequences of not having surgery. Problem [id number] Vasculogenic erectile dysfunction, unspecified vasculogenic erectile dysfunction type (N52.9) Active confirmed He has the 2 prescriptions that his structure if he wishes to obtain the medication. I will send him to urologist if he wishes. I recommended he attempt intercourse after a good night sleep early in the morning on the weekend. Problem 545785032 History of deep venous thrombosis (DVT) of distal vein of left lower extremity (Z86.718) Active confirmed He had a pulmonary embolism in 2016 when he was under the care of Dr. Bravo. He continues to have edema in his left leg below the knee which is chronic. There was no sign of acute thrombosis today. Problem 725105559 Right anterior knee pain (M25.561) Active confirmed He has been referred to orthopedics with a possible tear in his meniscus. Problem 59338687 Encephalomalaci a (G93.89) Active confirmed He continues to have lower extremity hyperreflexia and pain in his neck with range of motion. He refuses to consider a surgical approach. I have refilled his pregabalin. Problem 262906275 Periumbilical hernia (K42.9) Active confirmed In the past h e has complained about his diagnosis stasis rectus thinking it was a hernia. At structure is unchanged. There is a new area around the umbilicus consistent with a hernia.It is being evaluuated with a CT scan and then a surgical consultation. Vital Signs Heart Rate 90 /min 01/23/2025 Temperature 97.3 degrees Fahrenheit 01/23/2025 Respiratory Rate 16 /min 01/02/2025 Blood pressure diastolic 86 mm Hg 01/23/2025 Height 71 in 01/23/2025 Blood pressure systolic 143 mm Hg 01/23/2025 Weight 314 lbs 01/23/2025 BMI 43.79 kg/m2 01/23/2025 Encounters Encounter Location Date Provider Diagnosis Malcom Elias III, MD [address] [place] [address] [place] [address] 03/03/2024 Malcom Elias Essential hypertensi on I10 ; Obesity (BMI 30-39.9) E66.9 ; Erectile dysfunction, unspecified erectile dysfunction type N52.9 ; Primary insomnia F51.01 ; History of pulmonary embolism Z86.711 ; History of deep venous thrombosis (DVT) of distal vein of left lower extremity Z86.718 and Reactive depression F32.9 Malcom Elias III, MD [address] [place] [address] [place] [address] 05/11/2024 Malcom Elias Essential hypertensi on I10 ; Morbid obesity due to excess calories E66.01 ; Osteoarthritis of cervical spine, unspecified spinal osteoarthritis complication status M47.812 ; History of deep venous thrombosis (DVT) of distal vein of left lower extremity Z86.718 and Back pain of lumbar region with sciatica M54.40 Malcom Elias III, MD [address] [place] [address] [place] [address] 10/09/2024 Malcom Elias Pain in left shoulde [...] Daytime somnolence R40.0 Malcom Elias III, MD [address] [place] [address] [place] [address] 01/02/2025 Malcom Elias Morbid obesity E66.0 1 ; Back pain of lumbar region with sciatica M54.40 ; Primary insomnia F51.01 ; Essential hypertension I10 ; History of pulmonary embolism Z86.711 ; History of deep venous thrombosis (DVT) of distal vein of left lower extremity Z86.718 ; Reactive depression F32.9 and Right anterior knee pain M25.561 Malcom Elias III, MD [address] [place] [address] [place] [address] 01/23/2025 Malcom Elias Right anterior knee pain M25.561 ; Periumbilical hernia K42.9 ; Back pain of lumbar region with sciatica M54.40 ; Primary insomnia F51.01 ; Essential hypertension I10 ; History of pulmonary embolism Z86.711 and Morbid obesity E66.01 Malcom Elias III, MD [address] [place] [address] [place] [address] 03/13/2024 Malcom Elias III, MD [address] [place] [address] [place] [address] 03/15/2024 Malcom Elias III, MD [address] [place] [address] [place] [address] 03/16/2024 Malcom Elias III, MD [address] [place] [address] [place] [address] 03/29/2024 Malcom Elias III, MD [address] [place] [address] [place] [address] 04/05/2024 Malcom Elias III, MD [address] [place] [address] [place] [address] 04/13/2024 Malcom Elias III, MD [address] [place] [address] [place] [address] 04/20/2024 Malcom Elias III, MD [address] [place] [address] [place] [address] 06/27/2024 Malcom Elias Essential hypertensi on I10 Malcom Elias III, MD [address] [place] [address] [place] [address] 07/14/2024 Malcom Elias III, MD [address] [place] [address] [place] [address] 12/27/2024 Malcom Elias III, MD [address] [place] [address] [place] [address] 02/01/2025 Malcom Elias Essential hypertensi on I10 and Periumbilical hernia K42.9 Malcom Elias III, MD [address] [place] [address] [place] [address] 04/13/2024 Malcom Elias Assessments Encounter Date Diagnosis (ICD Code) Assessment Notes T reatment Notes Treatment Clinical Notes 03/03/2024 Obesity (BMI 30-39.9 ) (ICD-10 - [...] referred to the bariatric surgery program at [facility]. Current medications were continued. 05/11/2024 Morbid obesity due t o excess calories (ICD-10 - E66.01) His body mass index is 42.5 and his weight is 305. For for a sleep study to rule out C sleep apnea. He has been referred to the weight loss program of [facility] to discuss bariatric procedures. His insurance does not cover weight loss medication. 10/09/2024 Pain in left shoulde r (ICD-10 - M25.512) He has been referred to orthopedics with a possible tear in his rotator cuff. 10/09/2024 Right anterior knee pain (ICD-10 - M25.561) He has been referred to orthopedics with a possible tear in his meniscus. 01/02/2025 Morbid obesity (ICD- 10 - E66.01) He is involved with the weight-loss program at [facility]. His weight is stable. He remains [...] He declines to see neurosurgery anymore. 01/23/2025 Right anterior knee pain (ICD-10 - [...] CT scan and then a surgical consultation. 06/27/2024 Essential hypertensi on (ICD-10 - I10) His blood pressure is coming under control. We have discussed aggressive weight loss measures. He is being referred to the bariatric surgery program at [facility]. Current medications were continued. 02/01/2025 Essential hypertensi on (ICD-10 - I10) 03/03/2024 Erectile dysfunction , unspecified erectile dysfunction [...] in his regimen is needed today. 01/02/2025 Primary insomnia (ICD-10 - F51.01) He continues to have difficulty finding a comfortable position to sleep. I have suggested various types of pillows for him and he will try them. 01/23/2025 Back pain of lumbar region with sciatica (ICD-10 - M54.40) His neck pain has been mild lately and a has no arm weakness. His back pain is moderate, but he is able to walk without a limp and is only intermittent. He has had no falls. He declines to see neurosurgery anymore. 02/01/2025 Periumbilical hernia (ICD-10 - K42.9) 03/03/2024 Primary insomnia (ICD-10 - F51.01) He [...] change in his regimen was needed today. 01/02/2025 Essential hypertensi on (ICD-10 - I10) His blood pressure is 137/81. No change in his regimen is needed today. 01/23/2025 Primary insomnia (ICD-10 - F51.01) He continues to have difficulty finding a comfortable position to sleep. I have suggested various types of pillows for him and he will try them. 03/03/2024 History of pulmonary embolism (ICD-10 - [...] is involved with the weight-loss program at [facility]. His weight is stable. He remains in the morbidly obese range. He is no longer taking Wegovy due to insurance non-coverage. 01/02/2025 History of pulmonary embolism (ICD-10 - Z86.711) There was no shortness of breath or calf tenderness today. He'll be monitored for recurrence. There is no sign today of recurrent venous thromboembolism. 01/23/2025 Essential hypertensi on (ICD-10 - I10) His blood pressure is 137/81. No change in his regimen is needed today. 03/03/2024 History of deep veno us [...] him and he will try them. 01/02/2025 History of deep veno us thrombosis (DVT) of distal vein of left lower extremity (ICD-10 - Z86.718) He had a pulmonary embolism in 2015 when he was under the care of Dr. Bravo. He continues to have edema in his left leg below the knee which is chronic. There was no sign of acute thrombosis today. 01/23/2025 History of pulmonary embolism (ICD-10 - Z86.711) There was no shortness of breath or calf tenderness today. He'll be monitored for recurrence. There is no sign today of recurrent venous thromboembolism. 03/03/2024 Reactive depression (ICD-10 - F32.9) Once [...] He declines to see neurosurgery anymore. 01/02/2025 Reactive depression (ICD-10 - F32.9) Once again he is noncompliant with recommendations for surgical relief of the cervical spinal cord. He is mentally competent to make decisions today. He is being and he is depressed but he is seeing a therapist regularly. He says he is taking his antidepressant medication. I have reviewed with him the consequences of not having surgery. 01/23/2025 Morbid obesity (ICD- 10 - E66.01) He is involved with the weight-loss program at [facility]. His weight is stable. He remains in the morbidly obese range. He is no longer taking Wegovy due to insurance non-coverage. 10/09/2024 History of pulmonary embolism (ICD-10 - Z86.711) There was no shortness of breath or calf tenderness today. He'll be monitored for recurrence. There is no sign today of recurrent venous thromboembolism. 01/02/2025 Right anterior knee pain (ICD-10 - M25.561) He has been referred to orthopedics with a possible tear in his meniscus. 10/09/2024 History of deep veno us thrombosis [...] C) 10/26/2022 PROFILE, FASTING (COMPREHENSIVE METABOLI C) 09/20/2023 PROFILE, FASTING (COMPREHENSIVE METABOLI C) 04/29/2022 PROFILE, FASTING (COMPREHENSIVE METABOLI C) 10/09/2024 PROFILE, FASTING (COMPREHENSIVE METABOLI C) 05/30/2021 PROFILE, FASTING (COMPREHENSIVE METABOLI C) 03/03/2024 PROFILE, FASTING (COMPREHENSIVE METABOLI C) 01/24/2024 PROFILE, RANDOM (COMPREHENSIVE METABOLIC ) 02/01/2025 PROFILE, RANDOM (COMPREHENSIVE METABOLIC ) 01/23/2025 LIPID PANEL 01/24/2024 LIPID PANEL 10/26/2022 LIPID PANEL 04/29/2022 PSA, TOTAL 03/03/2024 PSA, TOTAL 01/24/2024 PSA, TOTAL 09/20/2023 PSA, TOTAL 10/26/2022 PSA, TOTAL 04/29/2022 PSA, TOTAL 10/09/2024 CBC w DIFF 10/09/2024 CBC w DIFF 01/24/2024 CBC w DIFF 09/20/2023 CBC w DIFF 10/26/2022 CBC w DIFF 01/23/2025 CBC w DIFF 04/29/2022 CBC w DIFF 05/30/2021 VARICELLA ZOSTER-IMMUNE STATUS 0 RUBEOLA IGG (MEASLES) 12/27/2019 MUMPS AB IGG 12/27/2019 TETANUS ANTITOXOID ANTIBODY 12/27/2019 CT ABD WITH CONTRAST 01/23/2025 MRI CERVICAL SPINE NO CONTRAST 9 MRI LUMBAR SPINE W&WO CONTRAST 8 XR ANKLE LT 01/02/2025 VITAMIN D 25-OH TOTAL 04/29/2022 CBC WITH AUTO DIFF 03/03/2024 Bordetella pertussis toxin (PT) Antibody (IgG), Immunoassay 01/03/2020 Complete Blood Count Auto Diff Comprehensive Met. Panel 01/24/2025 Lipid Panel 05/30/2021 Lipid Panel 10/09/2024 Lipid Panel 03/03/2024 Lipid Panel 09/20/2023 VDRL Qualitative CSF 08/27/2020 Next Appt Details Provider Name:Malcom Elias, 03/20/2025 03:00:00 PM, [address] [place] [address] , [place] Cole, Á[place], [id number], Insurance Providers Payer Name Payer Address Payer Phone Subscriber Number Group Number Insured Name Patient Relationship to Insured Coverage Start Date Coverage End Date MEDICARE NGS [address] [place] [address] [id number] MARLENY FALK Self - patient is the insured MEDICAID [place] [address] ÁNGEL FORMAN [id number] MARLENY FALK Self - patient is the [...]
--- OUTSIDE RECORDS SUMMARY | 2025-02-15 13:36 | XMS_ITS | Clinical Summary ---
Author Organization [employer] Address [address] [facility] [address] [place] [address] Care Team Providers Care Optometry Teacher Name Role Phone Unavailable Primary Care Provider [...] patient's age to complete this topic Insurance [facility] MEDICAID STAND ADULT
--- OUTSIDE RECORDS SUMMARY | 2025-02-15 13:36 | XMS_ITS | Encounter Summary ---
Author Organization [employer] Address [address] [facility] [address] [facility] [address] [place] [address] Care Team Providers Care Maxillofacial Surgeon Name Role Phone Unavailable Primary Care Provider Unavailabl e Reason for Visit * Reason Onset Date Comments rs no show and cancelled/wait list 10/03/2024 Encounter Details Date Type Department Care Team (Late st Contact Info) Description 10/03/2024 Telephone C [facility]ULT [facility]ENT[facility] [address] [place] [address] Ghada Tatum rs no show and cancelled/wait [...] patient that information would be forwarded to [facility] dental however he is on the wait list and would be waiting for a call to come in for appt DR documented in this encounter Plan of Treatment Not on file documented as of this encounter Visit Diagnoses Not on filedocumented in this encounter
== END 2025-02-15 13:18 | disposition home or self-care (01) ==
LOC: HO.HOS 12:58
PROVIDERS: PCP Internal Medicine Medical Oncology; Visit Provider Orthopaedic Surgery
DX: M17.0 Bilateral primary osteoarthritis of knee (principal)
CPT/HCPCS: 20610

== ENCOUNTER → 2025-02-15 12:57 | Outpatient (BNVA) | payer MEDICARE, MEDICAID, SELFPAY | PROVIDERS: PCP Internal Medicine Medical Oncology; Visit Provider Orthopaedic Surgery | DX: M17.0 Bilateral primary osteoarthritis of knee (principal) | CPT/HCPCS: 20610; J7323 ==